=== PATIENT | female | born 1935 | race Caucasian/White ===

== ENCOUNTER 2017-11-26 06:54 | Inpatient (IN) | payer OTHER, MEDICARE ==
[2017-11-19 14:50] VITALS: BMI 25.4
[2017-11-26] MEDS ORDERED: BUPIVACAINE LIPOSOME/PF (EXPAREL) 266 MG/20 ML VIAL ONE (07:14)
[2017-11-26] MEDS ORDERED: MIDAZOLAM HCL 2 MG/2 ML SINGLE DOSE VIAL ONE (07:14)
[2017-11-26] MEDS ORDERED: BUPIVACAINE HCL/PF (5 MG/ML) 30 ML VIAL IJ ONE (07:15)
[2017-11-26] MEDS ORDERED: PROPOFOL 20 ML ONE (07:18)
[2017-11-26] MEDS ORDERED: SUCCINYLCHOLINE CHLORIDE 200 MG/10 ML VIAL ONE (07:18)
[2017-11-26] MEDS ORDERED: TRANEXAMIC ACID 1000 MG/10 ML VIAL ONE (07:18)
[2017-11-26] MEDS ORDERED: ceFAZolin SODIUM 1 GM VIAL ONE ×2 (07:18→12:18)
[2017-11-26] MEDS ORDERED: VANCOMYCIN 1,000 MG VIAL (RESTRICTED TO ID ONLY) ONE (07:18)
[2017-11-26] MEDS ORDERED: BUPIVACAINE 0.75% IN DEXTROSE/PF 2ML AMPULE NR ONE (07:20)
[2017-11-26] MEDS ORDERED: BENZOIN/ALOE VERA/STORAX/TOLU 58 ML BOTTLE ONE (07:24)
[2017-11-26] MEDS ORDERED: TRANEXAMIC ACID 1000 MG/10 ML VIAL IVPUSH ONE (08:16)
[2017-11-26] MEDS ORDERED: WATER IVPB ONE (08:45)
[2017-11-26] MEDS ORDERED: CEFAZOLIN 2 GM/D5W 2 GM/50 ML ML IVPB ONE (08:45)
[2017-11-26] MEDS ORDERED: DEXTROSE 5% IVPB ONE (08:45)
[2017-11-26] MEDS ORDERED: VANCOMYCIN IVPB ONE (08:45)
--- NOTE | 2017-11-26 08:52 | HP ---
History & Physical Update - History History: No Change - Physical Physical: No Change - Assessment Assessment: No Change (No change in health history since visit on 11/24/17 with Juan Jose GOODMAN Labs drawn this morning reviewed by anesthesia. Stress test completed 11/25/17 results reviewed by anesthesia-verbal) - Plan Plan: No Change
[2017-11-26 09:25] LABS: HEMATOCRIT 37.9 % (32.4-45.2); HEMOGLOBIN 12.6 GM/dl (10.7-15.3); MCH 28.3 pg (25.7-33.7); MCHC 33.3 g/dl (32.0-36.0); MEAN PLT VOLUME 9.3 fl (7.5-11.1); PLATELET COUNT 153 K/MM3 (134-434); RBC 4.46 M/mm3 (3.60-5.2); RDW 14.7 % (11.6-15.6)
[2017-11-26] MEDS ORDERED: fentaNYL CITRATE 250 MCG/5 ML VIAL ONE (09:30)
[2017-11-26] MEDS ORDERED: ROCURONIUM BROMIDE 50 MG/5 ML VIAL ONE (09:30)
[2017-11-26] MEDS ORDERED: LIDOCAINE HCL/PF 2% SDV 5ML VIAL ONE (09:33)
[2017-11-26] MEDS ORDERED: ePHEDrine SULFATE 50 MG/1 ML AMPULE ONE (10:58)
[2017-11-26] MEDS ORDERED: GLYCOPYRROLATE 0.2 MG/1 ML VIAL ONE (12:06)
[2017-11-26] MEDS ORDERED: NEOSTIGMINE METHYLSULFATE 0.5 MG/ML - 10 ML MDV ONE (12:06)
[2017-11-26] MEDS ORDERED: ONDANSETRON 4 MG/2 ML VIAL IVPUSH PRN ×2 (12:12→12:38)
[2017-11-26] MEDS ORDERED: oxyCODONE HCL 5 MG TABLET PO PRN (12:12)
[2017-11-26] MEDS ORDERED: ACETAMINOPHEN 325 MG TABLET (FP) PO SCH (12:15)
--- NOTE | 2017-11-26 12:32 | OP ---
Operative Note - Note: Operative Date: 11/26/17 Pre-Operative Diagnosis: Right total hip replacement loosening Operation: Revision right total hip replacement Implants: Moncho Right Rotating Hinge Post-Operative Diagnosis: Same as Pre-op Surgeon: Last Danielle Glass Blower: Dennis Danielle Anesthesiologist/MANAGER EDUCATION: Jose Alberto Garcia Anesthesia: General Specimens Removed: Old hardware Drains & Tubes with Location: 1 x deep HemoVac Operative Report Dictated: Yes
[2017-11-26] MEDS ORDERED: FUROSEMIDE 40 MG TABLET (FP) PO PRN (12:35)
--- NOTE | 2017-11-26 12:35 | PN ---
Progress Note (short form) - Note Progress Note: 82F s/p revision right total knee replacement POD #0. -Pain control. -DVT PPx: -Chemical: ASA 81mg PO BID x 6 weeks. -Mechanical: LOS's, SCD's. -Incentive spirometry. -PT/OT/Rehab, OOB. -TTWB RLE. -Right knee Mcdonald brace. -f/u AM labs. -f/u drain output. -Care per medical hospitalist team. -Discharge planning. -Will follow. Last Danielle MD (Orthopaedic Surgery).
[2017-11-26] MEDS ORDERED: MAG HYDROX/AL HYDROX/SIMETH 30 ML UNIT-DOSE CUP PO PRN (12:38)
[2017-11-26] MEDS ORDERED: MAGNESIUM HYDROX 2400MG/30ML ORAL SUSPENSION 30 ML CUP PO PRN (12:38)
[2017-11-26] MEDS ORDERED: LACTATED RINGERS SOLUTION 1,000 ML IV SCH (12:45)
[2017-11-26] MEDS ORDERED: ACETAMINOPHEN 325 MG TABLET (FP) ONE (13:35)
[2017-11-26] MEDS: oxyCODONE HCL 5 MG TABLET PO PRN ×2 (15:02→16:12)
--- NOTE | 2017-11-26 18:17 | OP ---
DATE OF OPERATION: 11/26/2017 SURGEON: Last Danielle MD TANK STAVE ASSEMBLER: Dennis Danielle MD ANESTHESIA: Spinal anesthesia with general anesthesia. PREOPERATIVE DIAGNOSIS: Loosening previous revision, right total knee arthroplasty. POSTOPERATIVE DIAGNOSIS: Loosening previous revision, right total knee arthroplasty. OPERATION PERFORMED: 1. Explant of rotating hinge. 2. Tibial tubercle osteotomy. 3. Extensive debridement of soft tissue thigh, femur, and knee. 4. Revision total knee arthroplasty (semirotating hinge). ANTIBIOTICS GIVEN: 2 g Kefzol, 1 g vancomycin preop; 1 g Kefzol given at the time of release of the tourniquet. TOURNIQUET TIME: 2 hours and 10 minutes. DESCRIPTION OF PROCEDURE: Patient correctly identified, brought in the operating room. Right lower extremity was prepped, free draped in the routine manner with Betadine scrub solution, wiped with alcohol, Duraprep applied. The incision was made along the original incision, extending proximally and distally. The soft tissues were dissected off the medial parapatellar retinacular tissues. A longitudinal incision was made in the quadriceps tendon, skirting around the would-be site of the patella as previous patellectomy been performed during surgery at [facility] many years ago. The incision continued along the medial tibial tubercle. Attempted patellar eversion was impossible to gain entry to this knee because of thickened fibrous tissue, and we elected to go ahead with a tibial tubercle osteotomy. This measured about 11 cm in total from the top of the tubercle distally. This was flapped open, giving easy access to the entire knee. Extensive fibrotic tissue noted. On the lateral side, there was granulation tissue that appeared angry, red. This was resected and sent to the lab for histopathology evaluation, found to be free of any polymorphs throughout the specimen looked at. Once this had been performed, the actual femoral component was noted to become macroscopically loose. The original thin fully rotating hinge component was removed, polyethylene removed, and then the femoral component removed with no difficulty. The tibia itself appeared to be solidly seated but we elected to remove this because the polyethylene inner lining of the housing had broken. Utilizing a small oscillating saw and osteotomes, the interface between the tibia and the bone bed was transected, and this brought about a complete exposure of the bone beds of the femur and the tibia. Fibrous tissue was readily noted in both. All fibrous tissue along the bone bed was removed. Multiple small endosteal drill holes were made in the femur as well as the tibial component for better cementation and fixation. Once this had been performed, trialing components were utilized to give the best possible match. Significant femoral osteolysis had occurred. We used the size 3 femur, size 100 x 15 stem; the femur had a distal augment buildup as well as in the distal component of the stem. This brought about a good fit and fill picture. The augments were all cemented into position. The tibia was then attended to. This measured size 2 with a size 13 x 100 stem but a 1-cm buildup augment as well. This was independently cemented into position. Excellent alignment was achieved on the table. Once this had been performed and all the trialing components were inserted, a 23-mm polyethylene provided without any hinge implant had excellent stability in the coronal and sagittal plane. All of these components were then cemented into position using routine cement. All extraneous cement was removed after it was cured. The cementing provided solid fixation of all components. The polyethylene liner was inserted with a locking mechanism and pin inserted. The tibial tubercle was then closed over and held with 3 small fragments, screws fixed with interfragmentary fixation. The fixation of the tibial tubercles was solid. No complications. The wounds were thoroughly lavaged. A 1/8th-inch drain was seated. Closure: Fascia 1 Vicryl, subcutaneous 1 and 2-0 Vicryl, skin gallo. However, prior to closure, a small lateral release was necessary in order to facilitate better soft tissue tracking , as the quadriceps tendon appeared to want to slide laterally. This was easily cured with a 2-inch lateral release starting distally and extending proximally. MD HOWARD Ham/[id number] MTDVivien
[2017-11-26] MEDS: ACETAMINOPHEN 325 MG TABLET (FP) PO SCH (20:14)
[2017-11-26] MEDS ORDERED: PT OWN MED DRAWER 7, Y5N ONE (21:32)
[2017-11-26] MEDS: SENNOSIDES/DOCUSATE COMBO (SENNA PLUS) TABLET (UD) PO SCH (21:40)
[2017-11-26] MEDS: ASPIRIN 81 MG CHEWABLE TABLETS PO SCH (21:40)
[2017-11-26] MEDS: GABAPENTIN 100 MG CAPSULE (FP) PO SCH (21:40)
[2017-11-26] MEDS: PRAMIPEXOLE DIHYDROCHLORIDE 1.5 MG TABLET PO SCH (21:41)
[2017-11-27] MEDS: CEFAZOLIN 1 GM/D5W 1 GM/50 ML BAG IVPB SCH (01:08)
[2017-11-27] MEDS: oxyCODONE HCL 5 MG TABLET PO PRN ×3 (01:08→09:34)
[2017-11-27] MEDS: ACETAMINOPHEN 325 MG TABLET (FP) PO SCH ×3 (01:09→21:43)
[2017-11-27] MEDS ORDERED: PT OWN MED DRAWER 7, Y5N ONE (05:37)
[2017-11-27] MEDS: PRAMIPEXOLE DIHYDROCHLORIDE 1.5 MG TABLET PO SCH ×3 (06:10→23:15)
[2017-11-27 08:31] LABS: HEMATOCRIT 31.5 % (32.4-45.2); HEMOGLOBIN 10.5 GM/dl (10.7-15.3); MCH 28.2 pg (25.7-33.7); MCHC 33.2 g/dl (32.0-36.0); MEAN PLT VOLUME 9.4 fl (7.5-11.1); PLATELET COUNT 149 K/MM3 (134-434); RBC 3.71 M/mm3 (3.60-5.2); RDW 14.4 % (11.6-15.6); WHITE BLOOD COUNT 6.2 K/mm3 (4.0-10.8)
[2017-11-27 09:08] LABS: ANION GAP 6 (8-16); BLOOD UREA NITROGEN 18 mg/dl (7-18); CALCIUM 8.2 mg/dl (8.4-10.2); CHLORIDE 102 mmol/L (98-107); CO2 25 mmol/L (22-28); GLUCOSE,RANDOM 95 mg/dl (74-106); POTASSIUM 4.2 mmol/L (3.5-5.1); SODIUM 133 mmol/L (136-145)
[2017-11-27 09:27] LABS: CREATININE < 0.8 mg/dl (0.6-1.3)
[2017-11-27] MEDS: ASPIRIN 81 MG CHEWABLE TABLETS PO SCH ×2 (09:34→23:16)
[2017-11-27] MEDS: SENNOSIDES/DOCUSATE COMBO (SENNA PLUS) TABLET (UD) PO SCH ×2 (09:35→23:17)
[2017-11-27] MEDS: GABAPENTIN 100 MG CAPSULE (FP) PO SCH ×2 (09:35→23:17)
[2017-11-27] MEDS: PANTOPRAZOLE 40 MG TABLET (FP) PO SCH (09:35)
[2017-11-27] MEDS: amLODIPine BESYLATE 5 MG TABLET (FP) PO SCH (09:35)
[2017-11-27] MEDS: SULFAMETHOXAZOLE/TRIMETHOPRIM 800MG/160MG D.S. TABLET PO SCH (09:35)
--- NOTE | 2017-11-27 10:13 | PN ---
Progress Note (short form) - Note Progress Note: Anesthesiology Post-op/Pain Service 82 y.o. woman s/p revision of right knee replacement with peripheral nerve blocks and spinal anesthesia. Pt. is resting comfortably in NAD. Pain under control. No residual paresthesia. VSS. 82 y.o. with stable post-operative course s/p revision of right total knee replacement. Continue post-op management as per primary team.
--- NOTE | 2017-11-27 12:05 | CONSULT ---
Consultation: REQUESTING PROVIDER: Dr Danielle CONSULT REQUEST: We have been asked to medically evaluate this patient for medical management HISTORY OF PRESENT ILLNESS: Patient is a 82 y/o female with a past medical history of CAD, depression, iron deficency anemia, GERD, HTN, and anxiety. Patient underwent a right total knee replacement with revision in the past secondary to infection. Patient is s/p right total knee replacement with revision, spinal anesthesia, Dr Danielle, 11/26/17 REVIEW OF SYSTEMS: CONSTITUTIONAL: Absent: fever, chills, diaphoresis, generalized weakness, malaise, loss of appetite, weight change HEENT: Absent: rhinorrhea, nasal congestion, throat pain, throat swelling, difficulty swallowing, mouth swelling, ear pain, eye pain, visual changes CARDIOVASCULAR: Absent: chest pain, syncope, palpitations, irregular heart rate, lightheadedness , peripheral edema RESPIRATORY: Absent: cough, shortness of breath, dyspnea with exertion, orthopnea, wheezing, stridor, hemoptysis GASTROINTESTINAL: Absent: abdominal pain, abdominal distension, nausea, vomiting, diarrhea, constipation, melena, hematochezia GENITOURINARY: Absent: dysuria, frequency, urgency, hesitancy, hematuria, flank pain, genital pain MUSCULOSKELETAL: Present: right knee pain Absent: myalgia, arthralgia, joint swelling, back pain, neck pain SKIN: Absent: rash, itching, pallor HEMATOLOGIC/IMMUNOLOGIC: Absent: easy bleeding, easy bruising, lymphadenopathy, frequent infections ENDOCRINE: Absent: unexplained weight gain, unexplained weight loss, heat intolerance, cold intolerance NEUROLOGIC: Absent: headache, focal weakness or paresthesias, dizziness, unsteady gait, seizure, mental status changes, bladder or bowel incontinence PSYCHIATRIC: Absent: anxiety, depression, suicidal or homicidal ideation, hallucinations. PHYSICAL EXAMINATION Vital Signs - 24 hr 11/26/17 11/26/17 11/26/17 12:51 12:55 13:00 Temperature 97.6 F Pulse Rate 75 69 68 Respiratory 18 18 18 Rate Blood Pressure 130/61 130/71 125/73 O2 Sat by Pulse 96 97 98 Oximetry (%) 11/26/17 11/26/17 11/26/17 13:05 13:15 13:30 Temperature Pulse Rate 66 65 74 Respiratory 18 18 18 Rate Blood Pressure 128/64 126/76 127/70 O2 Sat by Pulse 97 99 99 Oximetry (%) 11/26/17 11/26/17 11/26/17 13:45 13:53 13:55 Temperature Pulse Rate 73 65 65 Respiratory 18 Rate Blood Pressure 116/66 118/59 118/59 O2 Sat by Pulse 99 100 Oximetry (%) 11/26/17 11/26/17 11/27/17 20:38 21:07 04:00 Temperature 97.5 F L 97.6 F Pulse Rate 68 72 Respiratory 18 18 Rate Blood Pressure 100/51 105/70 O2 Sat by Pulse 100 Oximetry (%) 11/27/17 05:19 Temperature Pulse Rate Respiratory Rate Blood Pressure O2 Sat by Pulse 95 Oximetry (%) GENERAL: Awake, alert, and fully oriented, in no acute distress. HEAD: Normal with no signs of trauma. EYES: Pupils equal, round and reactive to light, extraocular movements intact, sclera anicteric, conjunctiva clear. No lid lag. EARS, NOSE, THROAT: Ears normal, nares patent, oropharynx clear without exudates. Moist mucous membranes. NECK: Normal range of motion, supple without lymphadenopathy, JVD, or masses. LUNGS: Breath sounds equal, clear to auscultation bilaterally. No wheezes, and no crackles. No accessory muscle use. HEART: Regular rate and rhythm, normal S1 and S2 without murmur, rub or gallop. ABDOMEN: Soft, nontender, not distended, normoactive bowel sounds, no guarding, no rebound, no masses. No hepatomegaly or splenomegaly. MUSCULOSKELETAL: Normal range of motion at all joints. No bony deformities or tenderness. No CVA tenderness. UPPER EXTREMITIES: 2+ pulses, warm, well-perfused. No cyanosis. No clubbing. Cap refill <2 seconds. No peripheral edema. LOWER EXTREMITIES: 2+ pulses, warm, well-perfused. No calf tenderness. No peripheral edema. RIGHT LOWER EXTREMITY: knee immobilizer, hemovac, scant sangenous drainag NEUROLOGICAL: Cranial nerves II-XII intact. Normal speech. Normal gait. PSYCHIATRIC: Cooperative. Good eye contact. Appropriate mood and affect. SKIN: Warm, dry, normal turgor, no rashes or lesions noted. Laboratory Results - last 24 hr 11/27/17 11/27/17 08:24 08:27 WBC 6.2 RBC 3.71 Hgb 10.5 L D Hct 31.5 L D MCV 85.0 MCH 28.2 MCHC 33.2 RDW 14.4 Plt Count 149 MPV 9.4 Sodium 133 L Potassium 4.2 Chloride 102 Carbon Dioxide 25 Anion Gap 6 L BUN 18 Creatinine < 0.8 Random Glucose 95 Calcium 8.2 L Active Medications Generic Name Dose Route Start Last Admin Trade Name Freq PRN Reason Stop Dose Admin Acetaminophen 650 mg 11/26/17 13:45 11/27/17 09:33 Tylenol - PO 650 mg Q6H STEVO Administration Al Hydroxide/Mg Hydroxide 30 ml 11/26/17 12:38 Mylanta Oral Suspension - PO Q4H PRN DYSPEPSIA Amlodipine Besylate 5 mg 11/27/17 10:00 11/27/17 09:35 Norvasc - PO 5 mg DAILY STEVO Administration Aspirin 81 mg 11/26/17 22:00 11/27/17 09:34 Asa - PO 81 mg BID STEVO Administration Fentanyl 25 mcg 11/26/17 12:12 Sublimaze Injection - IVPUSH [id number] PRN PAIN-PACU ORDER X 4 DOSES ONLY Furosemide 40 mg 11/26/17 12:35 11/26/17 13:43 Lasix - PO 40 mg DAILY PRN Administration SWOLLEN LEGS Gabapentin 100 mg 11/26/17 22:00 11/27/17 09:35 Neurontin - PO 100 mg BID STEVO Administration Lactated Ringer's 1,000 mls @ 75 mls/hr 11/26/17 12:15 Lactated Ringers Solution IV ASDIR STEVO Magnesium Hydroxide 30 ml 11/26/17 12:38 Milk Of Magnesia - PO PRN PRN CONSTIPATION Ondansetron HCl 4 mg 11/26/17 12:38 Zofran Injection IVPUSH Q6H PRN NAUSEA Oxycodone HCl 5 mg 11/26/17 12:12 11/27/17 09:34 Roxicodone - PO 5 mg Q3H PRN Administration PAIN LEVEL 1-5 Oxycodone HCl 10 mg 11/26/17 12:12 Roxicodone - PO Q3H PRN PAIN LEVEL 6-10 Pantoprazole Sodium 40 mg 11/27/17 10:00 11/27/17 09:35 Protonix - PO 40 mg DAILY STEVO Administration Pramipexole Dihydrochloride 1.5 mg 11/26/17 14:00 11/27/17 06:10 Mirapex - PO 1.5 mg TID STEVO Administration Senna/Docusate Sodium 2 tablet 11/26/17 22:00 11/27/17 09:35 Pericolace - PO 2 tablet BID STEVO Administration Trimethoprim/Sulfamethoxazole 1 each 11/27/17 10:00 11/27/17 09:35 Bactrim Ds - PO 1 each DAILY STEVO Administration ASSESSMENT/PLAN: 1) MS s/p right total knee replacment with revision, POD #1 - prn pain medication - incentive spirometer - physical therapy as per the orthopedist - monitor hgb stable 10.5 2) cardiovascular hypertension - continue norvasc - b/p at goal coronary artery disease - continue ASA 3) heme/onc hx MRSA - continue bactrim, MRSA screen ordered iron deficency anemia - repeat hgb 10.2 strict monitoring, start Iron supplements Dispo: We will continue to follow the patient. Thank you for this consultative opportunity. Visit type - Emergency Visit Emergency Visit: No - New Patient This patient is new to me today: No - Critical Care Critical Care patient: No
[2017-11-27] MEDS ORDERED: ACETAMINOPHEN 325 MG TABLET (FP) ONE (21:41)
[2017-11-27] MEDS: FERROUS SO4 325 MG TABLET (FP) PO SCH (23:26)
[2017-11-28] MEDS: ACETAMINOPHEN 325 MG TABLET (FP) PO SCH ×6 (01:21→20:15)
[2017-11-28] MEDS ORDERED: oxyCODONE HCL 5 MG TABLET ONE (04:49)
[2017-11-28] MEDS: PRAMIPEXOLE DIHYDROCHLORIDE 1.5 MG TABLET PO SCH ×4 (06:16→21:34)
[2017-11-28] MEDS: oxyCODONE HCL 5 MG TABLET PO PRN (06:16)
[2017-11-28] MEDS: LACTATED RINGERS SOLUTION 1,000 ML IV SCH ×3 (07:32→14:06)
--- NOTE | 2017-11-28 07:32 | PN ---
Progress Note (short form) - Note Progress Note: POD #2 s/p Revision right total hip replacement
[2017-11-28] MEDS: CEFAZOLIN 1 GM/D5W 1 GM/50 ML BAG IVPB SCH (07:34)
--- NOTE | 2017-11-28 07:48 | DS ---
Physical Exam: SUBJECTIVE: POD #2 s/p revision right total knee arthroplasty. Patient seen and examined OBJECTIVE: Vital Signs Temperature 99.5 F 11/28/17 06:32 Pulse Rate 92 H 11/28/17 06:32 Respiratory Rate 20 11/28/17 06:32 Blood Pressure 123/73 11/28/17 06:32 O2 Sat by Pulse Oximetry (%) 93 L 11/27/17 23:24 PHYSICAL EXAM GENERAL: The patient is awake, alert, and fully oriented, in no acute distress. HEAD: Normal with no signs of trauma. EYES: PERRL, extraocular movements intact, sclera anicteric, conjunctiva clear. ENT: Ears normal, nares patent, oropharynx clear without exudates, moist mucous membranes. NECK: Trachea midline, full range of motion, supple. LUNGS: cta bilat anteriorly HEART: rrr ABDOMEN: Soft, nt, nd, normoactive bowel sounds EXTREMITIES: RLE with knee immobilizer in place. Hemovac dc'd on rounds. GMNVI bilat. PSYCH: Normal mood, normal affect. LABS CBC,CMP WBC 6.2 K/mm3 (4.0-10.8) 11/27/17 08:24 RBC 3.71 M/mm3 (3.60-5.2) 11/27/17 08:24 Hgb 10.5 GM/dl (10.7-15.3) L D 11/27/17 08:24 Hct 31.5 % (32.4-45.2) L D 11/27/17 08:24 MCV 85.0 fl (80-96) 11/27/17 08:24 MCH 28.2 pg (25.7-33.7) 11/27/17 08:24 MCHC 33.2 g/dl (32.0-36.0) 11/27/17 08:24 RDW 14.4 % (11.6-15.6) 11/27/17 08:24 Plt Count 149 K/MM3 (134-434) 11/27/17 08:24 MPV 9.4 fl (7.5-11.1) 11/27/17 08:24 Sodium 133 mmol/L (136-145) L 11/27/17 08:27 Potassium 4.2 mmol/L (3.5-5.1) 11/27/17 08:27 Chloride 102 mmol/L (98-107) 11/27/17 08:27 Carbon Dioxide 25 mmol/L (22-28) 11/27/17 08:27 Anion Gap 6 (8-16) L 11/27/17 08:27 BUN 18 mg/dl (7-18) 11/27/17 08:27 Creatinine < 0.8 mg/dl (0.6-1.3) 11/27/17 08:27 Random Glucose 95 mg/dl (74-106) 11/27/17 08:27 Calcium 8.2 mg/dl (8.4-10.2) L 11/27/17 08:27 HOSPITAL COURSE: Date of Admission:11/26/17 Date of Discharge: 11/28/17 The patient was admitted to the Med-Surg Unit after an elective repair of right total knee replacement with revision in the past secondary to infection. Now, s/ p revision of right total knee arthroplasty. The day of surgery, the patient ambulated the hallways with assistance. Narcotic and non-narcotic pain management control was achieved with an oral and IV approach. POD #1, the surgical drain was removed fully intact and without incident. Bekah-operative IV ABX were administered. DVT prophylaxis was achieved with SCDs and early ambulation. Patient adamantly refuses to go to REHAB facility. Prefers to go home. Will arrange with rn social work to get ahospital bed delivered to patient's home for short term use). The discharge instructions and an oral pain management plan were reviewed with the patient. All questions answered. Above plan discussed with Dr. Danielle and agreed. Minutes to complete discharge: 25 Visit type - Case Type Case Type: Scheduled - New patient This patient is new to me today: Yes Date on this admission: 11/28/17
[2017-11-28 08:09] LABS: HEMATOCRIT 29.2 % (32.4-45.2); MCHC 34.1 g/dl (32.0-36.0); MEAN CELL VOLUME 85.2 fl (80-96); MEAN PLT VOLUME 9.2 fl (7.5-11.1); PLATELET COUNT 126 K/MM3 (134-434); RBC 3.43 M/mm3 (3.60-5.2); RDW 14.5 % (11.6-15.6); WHITE BLOOD COUNT 6.3 K/mm3 (4.0-10.8)
[2017-11-28] MEDS ORDERED: PT OWN MED DRAWER 7, Y5N ONE ×3 (09:30→21:33)
[2017-11-28] MEDS: FERROUS SO4 325 MG TABLET (FP) PO SCH ×2 (09:33→21:30)
[2017-11-28] MEDS: ASPIRIN 81 MG CHEWABLE TABLETS PO SCH ×2 (09:33→21:30)
[2017-11-28] MEDS: PANTOPRAZOLE 40 MG TABLET (FP) PO SCH (09:33)
[2017-11-28] MEDS: SULFAMETHOXAZOLE/TRIMETHOPRIM 800MG/160MG D.S. TABLET PO SCH (09:33)
[2017-11-28] MEDS: GABAPENTIN 100 MG CAPSULE (FP) PO SCH ×2 (09:33→21:31)
[2017-11-28] MEDS: SENNOSIDES/DOCUSATE COMBO (SENNA PLUS) TABLET (UD) PO SCH ×2 (09:34→21:31)
[2017-11-28] MEDS: amLODIPine BESYLATE 5 MG TABLET (FP) PO SCH (09:34)
--- NOTE | 2017-11-28 16:32 | PATH ---
Surgical Pathology Report Patient Name: ABBIE HERNANDEZ Med. Rec. #: [id number] /Age/Gender: 1935 (Age: 82) / F Account: [id number] Location: [facility] MED-SURG Taken: 11/26/2017 Received: 11/26/2017 Reported: 11/28/2017 Physicians: Last Danielle M.D. Specimen(s) Received A: RIGHT KNEE SYNOVIUM (FROZEN SECTION) B: RIGHT KNEE EXPLANTS Clinical History Right knee loose implant Intraoperative Consult Diagnosis Right knee synovium, frozen section: No neutrophils seen. Calcific deposits present. Qamar Reed M.D., 11/26/17 Final Diagnosis A. SYNOVIUM, RIGHT KNEE, EXCISION: FIBROSYNOVIAL TISSUE SHOWING CALCIFIC DEPOSITS (POSSIBLY DYSTROPHIC CALCIFICATIONS) AND BONE. NO ACUTE INFLAMMATION/NEUTROPHILS ARE IDENTIFIED. B. EXPLANT, RIGHT KNEE: HARDWARE, DESCRIBED (GROSS EXAMINATION ONLY). Electronically Signed Patrica Reed M.D. Gross Description A. Received fresh for frozen section labeled "right knee synovial," is a 2.5 x 2.2 x 0.3 cm portion of red and yellow mills soft tissue. Frozen section is performed on the tissue. The frozen section residue is entirely submitted in one cassette. B. Received fresh labeled "right knee explant," are 2 villa metallic portions of hardware averaging 19 cm in greatest dimension, consistent with portions of knee hardware. Also received within the same container is a 5.8 x 4.0 x 2.6 cm white, plastic foreign body as well as 2 villa metallic screws measuring 6.0 and 7.0 cm in length. No soft tissue is present. No sections are submitted, gross only. 11/26/2017 saudi11/26/2017
[2017-11-29] MEDS: ACETAMINOPHEN 325 MG TABLET (FP) PO SCH ×2 (05:35→07:35)
[2017-11-29] MEDS: PRAMIPEXOLE DIHYDROCHLORIDE 1.5 MG TABLET PO SCH (06:41)
[2017-11-29 09:24] VITALS: BP 134/62; PULSE 82; TEMP 98.8
[2017-11-29] MEDS: SENNOSIDES/DOCUSATE COMBO (SENNA PLUS) TABLET (UD) PO SCH (09:27)
[2017-11-29] MEDS: ASPIRIN 81 MG CHEWABLE TABLETS PO SCH (09:27)
[2017-11-29] MEDS: SULFAMETHOXAZOLE/TRIMETHOPRIM 800MG/160MG D.S. TABLET PO SCH (09:27)
[2017-11-29] MEDS: FERROUS SO4 325 MG TABLET (FP) PO SCH (09:28)
[2017-11-29] MEDS: PANTOPRAZOLE 40 MG TABLET (FP) PO SCH (09:28)
[2017-11-29] MEDS: amLODIPine BESYLATE 5 MG TABLET (FP) PO SCH (09:28)
[2017-11-29] MEDS: GABAPENTIN 100 MG CAPSULE (FP) PO SCH (09:28)
[2017-11-29] MEDS ORDERED: MAGNESIUM HYDROX 2400MG/30ML ORAL SUSPENSION 30 ML CUP PO ONE (09:38)
== END 2017-11-29 11:10 | DRG 468 ==
LOC: FM/S 06:54
PROVIDERS: ADMIT Orthopaedic Surgery Orthopaedic Surgery of the Spine; ATTEND Orthopaedic Surgery Orthopaedic Surgery of the Spine
PROC: 0SP909Z Removal of Liner from Right Hip Joint, Open Approach (ICD-10-PCS; 2017-11-26)
PROC: 0SUR09Z Supplement Right Hip Joint, Femoral Surface with Liner, Open Approach (ICD-10-PCS; 2017-11-26)
PROC: 0SPR0JZ Removal of Synthetic Substitute from Right Hip Joint, Femoral Surface, Open Approach (ICD-10-PCS; 2017-11-26)
PROC: 0SRR0J9 Replacement of Right Hip Joint, Femoral Surface with Synthetic Substitute, Cemented, Open Approach (ICD-10-PCS; principal; 2017-11-26 08:00)
DX: T84.032A Mechanical loosening of internal right knee prosthetic joint, initial encounter (principal); M17.11 Unilateral primary osteoarthritis, right knee; I10 Essential (primary) hypertension; D50.9 Iron deficiency anemia, unspecified; I25.10 Atherosclerotic heart disease of native coronary artery without angina pectoris; K21.9 Gastro-esophageal reflux disease without esophagitis; F41.9 Anxiety disorder, unspecified; F32.9 Major depressive disorder, single episode, unspecified; Z85.3 Personal history of malignant neoplasm of breast; E78.5 Hyperlipidemia, unspecified
CPT/HCPCS: 36415; 73560-TC-RT-FY; 80048; 85027; 86850; 86900; 86901; 86922; 87081; 94010; 94760; 97116-GP; 97162-GP

== ENCOUNTER 2018-05-18 12:38 | Emergency (ER) | payer OTHER, MEDICARE ==
--- NOTE | 2018-05-18 12:49 | PDOC ---
History of Present Illness - General History Source: Patient (Patient brought in by nephew because of pain in the right knee and weakness. Patient reported multiple surgeries on that joint with infections, reconstructions and impressive atrophy of muscles in the lower extremities.) Exam Limitations: No Limitations - History of Present Illness Timing/Duration: unsure Severity: moderate Modifying Factors: improves with: rest Associated Symptoms: reports: denies symptoms <Saeid Haney - Last Filed: 05/18/18 16:19> <Scarlett Perez - Last Filed: 05/18/18 18:43> - General Chief Complaint: Pain Stated Complaint: RT KNEE PAIN Time Seen by Provider: 05/18/18 12:46 Past History - Travel Traveled outside of the country in the last 30 days: No Close contact w/someone who was outside of country & ill: No - Past Medical History Anemia: Yes (PT HAD TRANSFUSION;UNKNOWN CAUSE OF ANEMIA) Asthma: No Cancer: Yes (LEFT BREAST 2006;LUMPECTOMY;CHEMO;RT) Cardiac Disorders: No CVA: No COPD: No CHF: No Dementia: No Diabetes: No GI Disorders: Yes (GERD;ULCERS) Disorders: No HTN: Yes Hypercholesterolemia: Yes Liver Disease: No Psychiatric Problems: Yes (anxiety, depression,) Seizures: No Thyroid Disease: No - Surgical History Abdominal Surgery: No Appendectomy: No Cardiac Surgery: No Cholecystectomy: No Lung Surgery: No Neurologic Surgery: No Orthopedic Surgery: Yes (LEFT KNEE 5-6 REPLACEMENTS R/T MRSA INFECTION?) - Suicide/Smoking/Psychosocial Hx Smoking History: Never smoked Have you smoked in the past 12 months: No Hx Alcohol Use: No Drug/Substance Use Hx: No Substance Use Type: None Hx Substance Use Treatment: No <Saeid Haney - Last Filed: 05/18/18 16:19> <Scarlett Perez - Last Filed: 05/18/18 18:43> - Past Medical History Allergies/Adverse Reactions: Allergies Allergy/AdvReac Type Severity Reaction Status Date / Time Iodinated Contrast- Oral and Allergy Severe Difficulty Verified 05/18/18 12:40 IV Dye Breathing,ANAPHYLACTIC Home Medications: Ambulatory Orders Amlodipine Besylate [Norvasc -] 5 mg PO DAILY 12/15/17 Aspirin [ASA -] 81 mg PO DAILY 12/15/17 Gabapentin [Neurontin] 100 mg PO BID 06/11/18 Metoprolol Succinate [Toprol Xl] 50 mg PO DAILY 12/15/17 Review of Systems - Review of Systems Able to Perform ROS?: Yes Is the patient limited Liberian proficient: Yes Constitutional: Yes: Symptoms Reported, Malaise HEENTM: No: Symptoms Reported, See HPI, Eye Pain, Blurred Vision, Tearing, Recent change in vision, Double Vision, Cataracts, Ear Pain, Ocular Prothesis, Ear Discharge, Nose Pain, Nose Congestion, Tinnitus, Nose Bleeding, Hearing Loss , Throat Pain, Throat Swelling, Mouth Pain, Dental Problems, Difficulty Swallowing, Mouth Swelling, Other Respiratory: No: Symptoms reported, See HPI, Cough, Orthopnea, Shortness of Breath, SOB with Exertion, SOB at Rest, Stridor, Wheezing, Productive cough, Hemoptysis, Other Cardiac (ROS): No: Symptoms Reported, See HPI, Chest Pain, Edema, Irregular Heart Rate, Lightheadedness, Palpitations, Syncope, Chest Tightness, Other ABD/GI: No: Symptoms Reported, See HPI, Abdominal Distended, Abd. Pain w/ defecation, Blood Streaked Bowels, Constipated, Diarrhea, Difficulty Swallowing , Nausea, Poor Appetite, Poor Fluid Intake, Rectal Bleeding, Vomiting, Indigestion, Abdominal cramping, Tarry Stools, Other Integumentary: No: Symptoms Reported, See HPI, Bruising, Change in Color, Change in Hair/Nails, Dryness, Erythema, Flushing, Lesions, Lumps, Pallor, Pruritus, Rash, Sweating, Other All Other Systems: Reviewed and Negative <Saeid Haney - Last Filed: 05/18/18 16:19> *Physical Exam - Vital Signs Last Vital Signs Temp Pulse Resp BP Pulse Ox 97.5 F L 58 L 20 136/73 96 05/18/18 12:40 05/18/18 12:40 05/18/18 12:40 05/18/18 12:40 05/18/18 12:40 <Scarlett Perez - Last Filed: 05/18/18 18:43> Medical Decision Making - Medical Decision Making 05/18/18 3 PM Call placed to Dr. Danielle. Awaiting call back 5:59 PM Radiologist called regarding X-ray performed at 1 PM. Increased luceny seen just under the cortex between the cortex and the cement stabilizing the distal femoral knee replacement component. 6 PM Call placed to Dr. Danielle regarding radiologist report. Awaiting call back Patient informed to contact Dr. Danielle in the morning. 6:33 PM Call placed to patient's home. Awaiting call back. 6:[address] Danielle returned call. Case discussed. Dr. Danielle reviewed X-rays and will call the patient to discuss further management. <Scarlett Perez - Last Filed: 05/18/18 18:43> *DC/Admit/Observation/Transfer - Discharge Dispostion Decision to Admit order: No <Saeid Haney - Last Filed: 05/18/18 16:19> - Attestations Scribe Attestion: 05/18/18 18:31 Documentation prepared by Scarlett Perez, acting as medical transcription editor for Saeid Haney MD. <Scarlett Perez - Last Filed: 05/18/18 18:43> Diagnosis at time of Disposition: Knee pain, chronic Qualifiers: Laterality: right Qualified Code(s): M25.561 - Pain in right knee - Discharge Dispostion Disposition: HOME Condition at time of disposition: Stable - Referrals Referrals: Last Danielle MD [Staff Physician] - - Patient Instructions Printed Discharge Instructions: DI for Knee Pain Additional Instructions: Follow to [facility] as advised by Dr Danielle
[2018-05-18 12:55] VITALS: BP 136/73; PULSE 58; TEMP 97.5; BMI 25.4
--- NOTE | 2018-05-18 19:53 | PDOC ---
Patient Follow-up (Call Back) - Post ED Follow - Up Condition at time of discharge: Stable Disposition at time of original discharge: HOME Reason for Call Back: Radiology (Patient's nephew called back after message was left on patient's voicemail. He will call Dr Danielle's office in the AM and arrange for followup appointment)
== END 2018-05-18 16:31 | disposition home or self-care (01) ==
LOC: FER 12:38
DX: M25.561 Pain in right knee (principal); Z85.3 Personal history of malignant neoplasm of breast; I10 Essential (primary) hypertension; E78.00 Pure hypercholesterolemia, unspecified; F41.8 Other specified anxiety disorders
CPT/HCPCS: 73560-TC-RT-FY; 99282-25

== ENCOUNTER 2018-05-27 08:48 | Inpatient (IN) | payer OTHER, MEDICARE ==
[2018-05-26 11:13] VITALS: BMI 23.6
[2018-05-27] MEDS ORDERED: MIDAZOLAM HCL 2 MG/2 ML SINGLE DOSE VIAL ONE ×2 (10:50→15:35)
[2018-05-27] MEDS ORDERED: BUPIVACAINE LIPOSOME/PF (EXPAREL) 266 MG/20 ML VIAL ONE (10:50)
[2018-05-27] MEDS ORDERED: VANCOMYCIN 1,000 MG VIAL (RESTRICTED TO ID ONLY) ONE (11:09)
[2018-05-27] MEDS ORDERED: EPINEPHrine/PF 1 MG/1 ML (1:1,000) AMPULE ONE (12:07)
[2018-05-27] MEDS ORDERED: KETOROLAC TROMETHAMINE 60 MG/2 ML VIAL ONE (12:07)
[2018-05-27] MEDS ORDERED: BUPIVACAINE HCL/PF 2.5 MG/ML - 30 ML VIAL IJ ONE (12:08)
[2018-05-27] MEDS ORDERED: morphine CARPU-JECT 10 MG/1 ML DISP.SYRIN ONE (12:08)
[2018-05-27] MEDS ORDERED: DEXMEDETOMIDINE HCL 200 MCG/2 ML ML IVPB ONE (12:13)
[2018-05-27] MEDS ORDERED: ePHEDrine SULFATE 50 MG/1 ML AMPULE ONE (12:26)
[2018-05-27] MEDS ORDERED: ceFAZolin SODIUM 1 GM VIAL ONE (15:27)
[2018-05-27] MEDS ORDERED: TRANEXAMIC ACID 1000 MG/10 ML VIAL ONE (15:43)
[2018-05-27] MEDS ORDERED: oxyCODONE HCL 5 MG TABLET PO PRN (17:00)
[2018-05-27] MEDS ORDERED: LACTATED RINGERS SOLUTION 1,000 ML IV SCH ×2 (17:00→17:15)
--- NOTE | 2018-05-27 17:04 | OP ---
Operative Note - Note: Operative Date: 05/27/18 Pre-Operative Diagnosis: Right total knee replacement hardware failure Operation: 1. Revision total knee replacement (femoral and tibial components revised). 2. Tibial tubercle osteotomy & fixation Implants: Kelly. GMRS Femur - Small, curved [id number] stem. Tibia - SM2 MRH baseplate, [id number] stem, 10mm tibial augment. Poly - 10mm Surgeon: Last Danielle Online Services Manager: Dennis Danielle Anesthesiologist/NETWORKING ENGINEER: Jose Alberto Garcia Anesthesia: Spinal, Local Specimens Removed: Hardware, cement Estimated Blood Loss (mls): 150 Drains & Tubes with Location: 1 x deep HemoVac Fluid Volume Replaced (mls): 1,100 (Crystalloid) Operative Report Dictated: Yes
--- NOTE | 2018-05-27 17:06 | PN ---
Progress Note (short form) - Note Progress Note: 83F s/p revision right total knee replacement POD #0. -Pain control. -Transfuse 1U PRBC post-op; closely monitor H&H. -Post-op antibiotics x 48 hrs. -DVT PPx: -Chemical: ASA 81mg PO BID x 6 weeks. -Mechanical: LOS's, SCD's. -Incentive spirometry. -PT/OT/Rehab, OOB. -WBAT RLE. -f/u AM labs. -f/u drain output. -Diet as tolerated. -f/u post-op trial of void. -Care per medical hospitalist team. -Discharge planning. -Will follow. Last Danielle MD (Orthopaedic Surgery).
[2018-05-27] MEDS ORDERED: ONDANSETRON 4 MG/2 ML VIAL IVPUSH PRN (17:08)
[2018-05-27] MEDS ORDERED: MAG HYDROX/AL HYDROX/SIMETH 30 ML UNIT-DOSE CUP PO PRN (17:08)
[2018-05-27] MEDS ORDERED: MAGNESIUM HYDROX 2400MG/30ML ORAL SUSPENSION 30 ML CUP PO PRN (17:08)
[2018-05-27 17:49] LABS: HEMATOCRIT 36.7 % (32.4-45.2); HEMOGLOBIN 11.6 GM/dl (10.7-15.3); MCH 26.4 pg (25.7-33.7); MCHC 31.5 g/dl (32.0-36.0); MEAN CELL VOLUME 83.9 fl (80-96); MEAN PLT VOLUME 9.4 fl (7.5-11.1); PLATELET COUNT 175 K/MM3 (134-434); RBC 4.38 M/mm3 (3.60-5.2); RDW 16.1 % (11.6-15.6); WHITE BLOOD COUNT 9.3 K/mm3 (4.0-10.8)
--- NOTE | 2018-05-27 18:30 | OP ---
DATE OF OPERATION: 05/27/2018 SURGEON: Last Danielle MD FRUIT SORTER: Dennis Danielle MD; medical student PREOPERATIVE DIAGNOSIS: Periprosthetic fracture, right distal femur, with rotating hinge implant in situ and loosening of femoral component. POSTOPERATIVE DIAGNOSIS: Periprosthetic fracture, right distal femur, with rotating hinge implant in situ and loosening of femoral component. OPERATION PERFORMED: 1. Explant of femur and tibia. 2. Resection of distal femur. 3. Revision to endoprosthesis, right knee (Kelly). ANESTHESIA: Peripheral block, spinal anesthesia, and conscious sedation. ANTIBIOTICS GIVEN: Kefzol 2 g, vancomycin 1 g given preoperatively, Kefzol 1 g given at the time of just prior to insertion of the definitive prosthesis. OPERATION DETAILS: The patient was correctly identified, brought in the operating room. The right lower extremity was prepped, free draped in the routine manner with Betadine scrub solution, wiped off with alcohol, and DuraPrep applied. Timeout was called. Imaging was available for intraoperative evaluation. With the patient in supine position, in a bloodless field, a midline incision, the old wound was opened, taken down extensively right down to the femur, coursing down to where the original patella was and then around the medial aspect of the tibial tubercle, sparing the patellar ligament. The soft tissue bed off the proximal and medial femur was dissected sharply and subperiosteally. The original 3 screws that were removed from the tibial tubercle, this had united solidly into position, and a revision tibial tubercle osteotomy performed in a coronal manner, exposing the proximal tibia and the tibial cut was right to the anterior surface of the original prosthesis of the tibia. The knee then readily flexed and easy exposure achieved. The fracture was noted, loss of bone anteriorly of the femur. The remaining bone is of poor quality and we elected, instead of revising this, to go to plan B, which was a distal femoral resection. The femoral component was loose and removed without any difficulty. The tibial component, however, was solidly fixed, necessitating the appropriate breaking in the bone between the cement and the implant interface, this with a small saw, and using osteotomes to appropriately cut into the proximal component of the stem via the tibial tubercle osteotomy, facilitated easy removal and retrieval of the implant. All cement was removed. The bone beds were thoroughly lavaged. The tibial bone was reamed to size 15, and a size 15 stem was opted for, with a size 2 tibial component with a 1 cm buildup block on the tibia. The femur was prepared with reaming to size 15 and a size 11 long stem bowed with 130 cm buildup block and appropriate sized distal femoral block component was inserted into the bone bed to achieve excellent alignment and associated appropriate leg length and orientation of the limb. In order to decrease the 7-degree valgus of the knee itself, I internally rotated the femoral component very slightly, which brought about an improvement of the limb alignment accordingly. This was by evaluating this on the table. Once all the bone bed had been cleared of cement, extraneous tissue and blood, the tissues were lavaged thoroughly. Cementing was in 2 stages. We cemented the tibia and the femur separately and went ahead then, once the cement had cured, by placing 10-mm spacer with a rotating hinge, appropriately, for the actual implant itself. The wounds were thoroughly lavaged throughout the procedure. Once the cement had cured and all extraneous cement had been removed, the revision implant appeared excellent in alignment and position, the tissues were closed as follows: Fascia: 1 Vicryl; subcutaneous: 1 and 2-0 Vicryl; skin: gallo. A 1/8-inch Hemovac x1. This was a complex wound closure because I utilized this fasciotomy on the medial side to free the fascia to allow proximalization of the soft tissue elements medially because of the tightness of tissues. This was a 4-layered closure with the fascia in 2 layers and subcutaneous in 1 layer and skin 1 layer. Overall comment: Operation went extremely well, difficult but turned out to be an excellent outcome. MD HOWARD Ham/[id number]
[2018-05-27] MEDS: SENNOSIDES/DOCUSATE COMBO (SENNA PLUS) TABLET (UD) PO SCH (21:25)
[2018-05-27] MEDS: ASPIRIN COATED 81 MG TABLET.EC PO SCH (21:25)
[2018-05-27] MEDS: GABAPENTIN 100 MG CAPSULE (FP) PO SCH (21:25)
[2018-05-27] MEDS ORDERED: ASPIRIN 325 MG TABLET PO SCH (22:00)
[2018-05-27] MEDS ORDERED: CEFAZOLIN 1 GM/D5W 1 GM/50 ML BAG IVPB SCH (23:00)
[2018-05-27] MEDS: ACETAMINOPHEN 325 MG TABLET (FP) PO SCH (23:03)
[2018-05-27] MEDS: CEFAZOLIN 1 GM/D5W 1 GM/50 ML BAG IVPB SCH (23:03)
[2018-05-28] MEDS: CEFAZOLIN 1 GM/D5W 1 GM/50 ML BAG IVPB SCH ×3 (03:32→18:42)
[2018-05-28] MEDS: oxyCODONE HCL 5 MG TABLET PO PRN (04:56)
[2018-05-28] MEDS: ACETAMINOPHEN 325 MG TABLET (FP) PO SCH ×3 (04:57→18:41)
[2018-05-28] MEDS: PANTOPRAZOLE 40 MG TABLET (FP) PO SCH (09:21)
[2018-05-28] MEDS: GABAPENTIN 100 MG CAPSULE (FP) PO SCH ×2 (09:21→21:34)
[2018-05-28] MEDS: ASPIRIN COATED 81 MG TABLET.EC PO SCH ×2 (09:22→21:34)
[2018-05-28] MEDS: SENNOSIDES/DOCUSATE COMBO (SENNA PLUS) TABLET (UD) PO SCH ×2 (09:22→21:34)
[2018-05-28] MEDS: amLODIPine BESYLATE 5 MG TABLET (FP) PO SCH (09:26)
[2018-05-28 09:33] LABS: HEMATOCRIT 27.2 % (32.4-45.2); HEMOGLOBIN 8.7 GM/dl (10.7-15.3); MCH 26.5 pg (25.7-33.7); MCHC 32.1 g/dl (32.0-36.0); MEAN CELL VOLUME 82.7 fl (80-96); PLATELET COUNT 136 K/MM3 (134-434); RBC 3.28 M/mm3 (3.60-5.2); WHITE BLOOD COUNT 9.8 K/mm3 (4.0-10.8)
[2018-05-28 09:41] LABS: ANION GAP 5 MMOL/L (8-16); BLOOD UREA NITROGEN 22 mg/dl (7-18); CALCIUM 7.9 mg/dl (8.4-10.2); CHLORIDE 104 mmol/L (98-107); CO2 24 mmol/L (22-28); CREATININE 0.7 mg/dl (0.6-1.3); GLUCOSE,RANDOM 84 mg/dl (74-106); POTASSIUM 4.1 mmol/L (3.5-5.1); SODIUM 133 mmol/L (136-145)
[2018-05-28] MEDS ORDERED: ALBUTEROL SO4 0.083% IH SOL 2.5 MG/3 ML VIAL.NEB. NEB ONE (09:47)
--- NOTE | 2018-05-28 13:23 | PN ---
Progress Note (short form) - Note Progress Note: 83F s/p revision right total knee replacement POD #1. Pain well controlled. No acute events overnight. Pt. denies overnight history of headaches, chest pain, shortness of breath, nausea, vomiting, chills, & sweats. (+) Voiding; (+) Flatus; (+) BM. Tolerating diet. (+) Walked in room. All labs and vitals reviewed. PE: AAO x 3, NAD. R-Knee: Dressing C/D/I. HemoVac drain intact & in place. Drain ouput: 100cc/ overnight. NVI distally. A/P: 83F s/p revision right total knee replacement POD #1. -Pain control. -Transfuse 1U PRBC today; closely monitor H&H. -Post-op antibiotics x 48 hrs. -DVT PPx: -Chemical: ASA 81mg PO BID x 6 weeks. -Mechanical: LOS's, SCD's. -Incentive spirometry. -PT/OT/Rehab, OOB. -WBAT RLE. -f/u AM labs. -f/u drain output. -Diet as tolerated. -Care per medical hospitalist team. -Discharge planning: home with visiting nurse service, physical therapy, and home health aid. -Will follow. Dennis Danielle MD (Orthopaedic Surgery).
--- NOTE | 2018-05-28 14:22 | CONSULT ---
Consultation: REQUESTING PROVIDER: Dr. Last Danielle CONSULT REQUEST: We have been asked to medically manage this patient post- operatively. 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 REVIEW OF SYSTEMS: CONSTITUTIONAL: Absent: fever, chills, diaphoresis, generalized weakness, malaise, loss of appetite, weight change HEENT: Absent: rhinorrhea, nasal congestion, throat pain, throat swelling, difficulty swallowing, mouth swelling, ear pain, eye pain, visual changes CARDIOVASCULAR: Absent: chest pain, syncope, palpitations, irregular heart rate, lightheadedness , peripheral edema RESPIRATORY: Absent: cough, shortness of breath, dyspnea with exertion, orthopnea, wheezing, stridor, hemoptysis GASTROINTESTINAL: Absent: abdominal pain, abdominal distension, nausea, vomiting, diarrhea, constipation, melena, hematochezia GENITOURINARY: Absent: dysuria, frequency, urgency, hesitancy, hematuria, flank pain, genital pain MUSCULOSKELETAL: +Back pain Absent: myalgia, arthralgia, joint swelling, back pain, neck pain SKIN: Absent: rash, itching, pallor HEMATOLOGIC/IMMUNOLOGIC: Absent: easy bleeding, easy bruising, lymphadenopathy, frequent infections ENDOCRINE: Absent: unexplained weight gain, unexplained weight loss, heat intolerance, cold intolerance NEUROLOGIC: Absent: headache, focal weakness or paresthesias, dizziness, unsteady gait, seizure, mental status changes, bladder or bowel incontinence PSYCHIATRIC: Absent: anxiety, depression, suicidal or homicidal ideation, hallucinations. PHYSICAL EXAMINATION Vital Signs 05/28/18 14:11 Temperature 97.9 F Pulse Rate 82 Respiratory 16 Rate Blood Pressure 119/57 L O2 Sat by Pulse 90 L Oximetry (%) GENERAL: Awake, alert. Complaining of back pain from sitting in chair earlier today. Denies knee pain. +nausea, vomiting lunch meal HEAD: Normal with no signs of trauma. EYES: Pupils equal, round and reactive to light, extraocular movements intact, sclera anicteric, conjunctiva clear. No lid lag. LUNGS: Breath sounds equal, clear to auscultation bilaterally. No wheezes, and no crackles. No accessory muscle use. HEART: Regular rate and rhythm, S1 and S2; + murmur ABDOMEN: Soft, nontender, not distended UPPER EXTREMITIES: 2+ pulses, warm, well-perfused. No cyanosis. No clubbing. Cap refill <2 seconds. No peripheral edema. RIGHT LOWER EXTREMITY: Surgical dressings and outer wrappings in place, c/d/i, TEDs LEFT LOWER EXTREMITY: SCD, LOS NEUROLOGICAL: Cranial nerves II-XII intact. Normal speech. Laboratory Results - last 24 hr 05/27/18 05/27/18 05/28/18 12:18 17:30 06:25 WBC 9.3 9.8 RBC 4.38 3.28 L Hgb 11.6 8.7 L Hct 36.7 27.2 L D MCV 83.9 82.7 MCH 26.4 26.5 MCHC 31.5 L 32.1 RDW 16.1 H 16.0 H Plt Count 175 136 MPV 9.4 10.0 Sodium Potassium Chloride Carbon Dioxide Anion Gap BUN Creatinine Creat Clearance w eGFR Random Glucose Calcium Blood Type B POSITIVE Antibody Screen Negative Crossmatch See Detail 05/28/18 06:25 WBC RBC Hgb Hct MCV MCH MCHC RDW Plt Count MPV Sodium 133 L Potassium 4.1 Chloride 104 Carbon Dioxide 24 Anion Gap 5 L BUN 22 H Creatinine 0.7 Creat Clearance w eGFR > 60 Random Glucose 84 Calcium 7.9 L Blood Type Antibody Screen Crossmatch Active Medications Generic Name Dose Route Start Last Admin Trade Name Freq PRN Reason Stop Dose Admin Acetaminophen 650 mg 05/27/18 17:00 05/28/18 13:25 Tylenol - PO 05/30/18 16:59 650 mg Q6H STEVO Administration Al Hydroxide/Mg Hydroxide 30 ml 05/27/18 17:08 Mylanta Oral Suspension - PO Q4H PRN DYSPEPSIA Amlodipine Besylate 5 mg 05/28/18 10:00 05/28/18 09:26 Norvasc - PO Not Given DAILY STEVO Aspirin 81 mg 05/27/18 22:00 05/28/18 09:22 Ecotrin - PO 81 mg BID STEVO Administration Gabapentin 100 mg 05/27/18 22:00 05/28/18 09:21 Neurontin - PO 100 mg BID STEVO Administration Cefazolin Sodium 1 gm in 50 mls @ 100 mls/hr 05/27/18 23:00 05/28/18 10:00 Ancef 1 Gm Premixed Ivpb - IVPB 05/29/18 10:29 100 mls/hr Q8H-IV STEVO Administration Protocol Magnesium Hydroxide 30 ml 05/27/18 17:08 Milk Of Magnesia - PO PRN PRN CONSTIPATION Metoprolol Succinate 50 mg 05/28/18 10:00 05/28/18 09:23 Toprol Xl - PO 50 mg DAILY STEVO Administration Ondansetron HCl 4 mg 05/27/18 17:08 05/27/18 18:15 Zofran Injection IVPUSH 4 mg Q6H PRN Administration NAUSEA Oxycodone HCl 5 mg 05/27/18 17:00 05/28/18 04:56 Roxicodone - PO 5 mg Q3H PRN Administration PAIN LEVEL 1-5 Oxycodone HCl 10 mg 05/27/18 17:00 Roxicodone - PO Q3H PRN PAIN LEVEL 6-10 Pantoprazole Sodium 40 mg 05/28/18 10:00 05/28/18 09:21 Protonix - PO 40 mg DAILY STEVO Administration Senna/Docusate Sodium 2 tablet 05/27/18 22:00 05/28/18 09:22 Pericolace - PO 2 tablet BID STEVO Administration ASSESSMENT/PLAN: 83 year-old female with a PMH significant for HTN, CAD, iron-deficiency anemia, GERD, depression, 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 Right total knee replacement hardware failure s/p revision total right knee replacement --POD #1 --perioperative antibiotics per surgery --Hgb 8.7 (<--11.6); surgery ordered 1U PRBC to be transfused today --drain out 210cc's past 24 hours --pain presently well-controlled with PO meds; continue home gabapentin --incentive spirometer Nausa, vomiting --belching, nauseous, spitting up food after lunch meal --scale back diet to clears --NS x 250mL x 1 --Zofran Hypertension --mildly hypotensive, unit of PRBC will give volume, no lasix --continue amlodipine, ToprolXL with hold parameters Coronary artery disease --continue ToprolXL, on ASA Iron-deficiency anemia --MCV wnl --not on home meds GERD --continue protonix Depression --not on home meds FEN Fluids: PO intake adequate Electrolytes: replete as indicated Nutrition: low sodium DVT prophylaxis: ASA, oob, ambulation, SCDs, TEDs Physical therapy Dispo: We will continue to follow the patient. Thank you for this consultative opportunity. Visit type - Emergency Visit Emergency Visit: Yes ED Registration Date: 05/27/18 Care time: The patient presented to the Emergency Department on the above date and was hospitalized for further evaluation of their emergent condition. - New Patient This patient is new to me today: Yes Date on this admission: 05/28/18 - Critical Care Critical Care patient: No
--- NOTE | 2018-05-28 14:22 | PN ---
Physical Exam: SUBJECTIVE: Patient seen and examined OBJECTIVE: Vital Signs Period Temp Pulse Resp BP Sys/Sen Pulse Ox Last 24 Hr 97.7 F-100.4 F 53-89 10-18 93-127/44-60 92-98 GENERAL: The patient is awake, alert, and fully oriented, in no acute distress. HEAD: Normal with no signs of trauma. EYES: PERRL, extraocular movements intact, sclera anicteric, conjunctiva clear. No ptosis. ENT: Ears normal, nares patent, oropharynx clear without exudates, moist mucous membranes. NECK: Trachea midline, full range of motion, supple. LUNGS: Breath sounds equal, clear to auscultation bilaterally, no wheezes, no crackles, no accessory muscle use. HEART: Regular rate and rhythm, S1, S2 without murmur, rub or gallop. ABDOMEN: Soft, nontender, nondistended, normoactive bowel sounds, no guarding, no rebound, no hepatosplenomegaly, no masses. EXTREMITIES: 2+ pulses, warm, well-perfused, no edema. NEUROLOGICAL: Cranial nerves II through XII grossly intact. Normal speech, gait not observed. PSYCH: Normal mood, normal affect. SKIN: Warm, dry, normal turgor, no rashes or lesions noted Laboratory Results - last 24 hr 05/27/18 05/27/18 05/28/18 12:18 17:30 06:25 WBC 9.3 9.8 RBC 4.38 3.28 L Hgb 11.6 8.7 L Hct 36.7 27.2 L D MCV 83.9 82.7 MCH 26.4 26.5 MCHC 31.5 L 32.1 RDW 16.1 H 16.0 H Plt Count 175 136 MPV 9.4 10.0 Sodium Potassium Chloride Carbon Dioxide Anion Gap BUN Creatinine Creat Clearance w eGFR Random Glucose Calcium Blood Type B POSITIVE Antibody Screen Negative Crossmatch See Detail 05/28/18 06:25 WBC RBC Hgb Hct MCV MCH MCHC RDW Plt Count MPV Sodium 133 L Potassium 4.1 Chloride 104 Carbon Dioxide 24 Anion Gap 5 L BUN 22 H Creatinine 0.7 Creat Clearance w eGFR > 60 Random Glucose 84 Calcium 7.9 L Blood Type Antibody Screen Crossmatch Active Medications Generic Name Dose Route Start Last Admin Trade Name Freq PRN Reason Stop Dose Admin Acetaminophen 650 mg 05/27/18 17:00 05/28/18 13:25 Tylenol - PO 05/30/18 16:59 650 mg Q6H STEVO Administration Al Hydroxide/Mg Hydroxide 30 ml 05/27/18 17:08 Mylanta Oral Suspension - PO Q4H PRN DYSPEPSIA Amlodipine Besylate 5 mg 05/28/18 10:00 05/28/18 09:26 Norvasc - PO Not Given DAILY STEVO Aspirin 81 mg 05/27/18 22:00 05/28/18 09:22 Ecotrin - PO 81 mg BID STEVO Administration Gabapentin 100 mg 05/27/18 22:00 05/28/18 09:21 Neurontin - PO 100 mg BID STEVO Administration Cefazolin Sodium 1 gm in 50 mls @ 100 mls/hr 05/27/18 23:00 05/28/18 10:00 Ancef 1 Gm Premixed Ivpb - IVPB 05/29/18 10:29 100 mls/hr Q8H-IV STEVO Administration Protocol Magnesium Hydroxide 30 ml 05/27/18 17:08 Milk Of Magnesia - PO PRN PRN CONSTIPATION Metoprolol Succinate 50 mg 05/28/18 10:00 05/28/18 09:23 Toprol Xl - PO 50 mg DAILY STEVO Administration Ondansetron HCl 4 mg 05/27/18 17:08 05/27/18 18:15 Zofran Injection IVPUSH 4 mg Q6H PRN Administration NAUSEA Oxycodone HCl 5 mg 05/27/18 17:00 05/28/18 04:56 Roxicodone - PO 5 mg Q3H PRN Administration PAIN LEVEL 1-5 Oxycodone HCl 10 mg 05/27/18 17:00 Roxicodone - PO Q3H PRN PAIN LEVEL 6-10 Pantoprazole Sodium 40 mg 05/28/18 10:00 05/28/18 09:21 Protonix - PO 40 mg DAILY STEVO Administration Senna/Docusate Sodium 2 tablet 05/27/18 22:00 05/28/18 09:22 Pericolace - PO 2 tablet BID STEVO Administration ASSESSMENT/PLAN:
[2018-05-28] MEDS ORDERED: ONDANSETRON 4 MG/2 ML VIAL IVPUSH ONE (14:41)
[2018-05-28] MEDS ORDERED: SODIUM CHLORIDE 250 ML IV STA (14:44)
[2018-05-29] MEDS: oxyCODONE HCL 5 MG TABLET PO PRN ×2 (00:07→23:21)
[2018-05-29] MEDS: ACETAMINOPHEN 325 MG TABLET (FP) PO SCH ×5 (00:08→23:23)
[2018-05-29] MEDS ORDERED: MELATONIN 5 MG TABLETS PO ONE (01:12)
[2018-05-29] MEDS: CEFAZOLIN 1 GM/D5W 1 GM/50 ML BAG IVPB SCH ×2 (01:21→10:03)
[2018-05-29 08:31] LABS: EOS % 9.4 % (0-4.5); HEMATOCRIT 29.2 % (32.4-45.2); HEMOGLOBIN 9.5 GM/dl (10.7-15.3); LYMPH % 13.6 % (8-40); MCH 28.1 pg (25.7-33.7); MCHC 32.7 g/dl (32.0-36.0); MEAN CELL VOLUME 86.1 fl (80-96); MEAN PLT VOLUME 10.2 fl (7.5-11.1); MONO % 8.1 % (3.8-10.2); NEUT % 67.9 % (42.8-82.8); PLATELET COUNT 102 K/MM3 (134-434); RBC 3.39 M/mm3 (3.60-5.2); RDW 16.5 % (11.6-15.6); WHITE BLOOD COUNT 7.3 K/mm3 (4.0-10.8)
[2018-05-29] MEDS: SENNOSIDES/DOCUSATE COMBO (SENNA PLUS) TABLET (UD) PO SCH ×2 (10:02→21:57)
[2018-05-29] MEDS: ASPIRIN COATED 81 MG TABLET.EC PO SCH ×2 (10:02→21:57)
[2018-05-29] MEDS: GABAPENTIN 100 MG CAPSULE (FP) PO SCH ×2 (10:02→21:57)
[2018-05-29] MEDS: amLODIPine BESYLATE 5 MG TABLET (FP) PO SCH (10:03)
[2018-05-29] MEDS: PANTOPRAZOLE 40 MG TABLET (FP) PO SCH (10:03)
[2018-05-29 10:16] LABS: ALBUMIN 2.4 g/dl (3.5-5.0); ALK PHOS 64 U/L (32-92); ANION GAP 9 MMOL/L (8-16); BILIRUBIN,TOTAL 0.5 mg/dl (0.2-1.0); BLOOD UREA NITROGEN 23 mg/dl (7-18); CALCIUM 8.2 mg/dl (8.4-10.2); CHLORIDE 105 mmol/L (98-107); CO2 22 mmol/L (22-28); CREATININE 0.8 mg/dl (0.6-1.3); GLUCOSE,RANDOM 110 mg/dl (74-106); MAGNESIUM 1.7 mg/dL (1.8-2.4); POTASSIUM 3.7 mmol/L (3.5-5.1); SGOT/AST 21 U/L (10-42); SGPT/ALT 9 U/L (10-40); SODIUM 136 mmol/L (136-145); TOT PROT 4.7 g/dl (6.4-8.3)
[2018-05-29] MEDS ORDERED: MAGNESIUM SULF 50% (8.12 MEQ/2 ML-1 GM VIAL) IVPB ONE (12:04)
[2018-05-29] MEDS ORDERED: MAGNESIUM SULFATE IN WATER 2 GM/50 ML IVPB IVPB ONE (12:30)
--- NOTE | 2018-05-29 14:28 | PN ---
Physical Exam: SUBJECTIVE: Patient seen and examined oob to chair. OBJECTIVE: Vital Signs Period Temp Pulse Resp BP Sys/Sen Pulse Ox Last 24 Hr 97.6 F-98.8 F 58-87 17-18 94-104/41-57 98 GENERAL: Awake, alert. Denies pain. Nausea better. LUNGS: Breath sounds equal, clear to auscultation bilaterally. No wheezes, and no crackles. No accessory muscle use. HEART: Regular rate and rhythm, S1 and S2; + murmur ABDOMEN: Soft, nontender, not distended UPPER EXTREMITIES: 2+ pulses, warm, well-perfused. No cyanosis. No clubbing. Cap refill <2 seconds. No peripheral edema. RIGHT LOWER EXTREMITY: Surgical dressings and outer wrappings in place, c/d/i, TEDs LEFT LOWER EXTREMITY: SCD, LOS NEUROLOGICAL: Cranial nerves II-XII intact. Normal speech. Laboratory Results - last 24 hr 05/27/18 05/28/18 05/29/18 12:18 16:03 07:00 WBC 7.3 RBC 3.39 L Hgb 9.5 L Hct 29.2 L MCV 86.1 MCH 28.1 MCHC 32.7 RDW 16.5 H Plt Count 102 L MPV 10.2 Absolute Neuts (auto) 4.9 Neutrophils % 67.9 Lymphocytes % 13.6 Monocytes % 8.1 Eosinophils % 9.4 H Basophils % 1.0 Sodium Potassium Chloride Carbon Dioxide Anion Gap BUN Creatinine Creat Clearance w eGFR Random Glucose Calcium Magnesium Total Bilirubin AST ALT Alkaline Phosphatase Total Protein Albumin Crossmatch See Detail See Detail 05/29/18 07:00 WBC RBC Hgb Hct MCV MCH MCHC RDW Plt Count MPV Absolute Neuts (auto) Neutrophils % Lymphocytes % Monocytes % Eosinophils % Basophils % Sodium 136 Potassium 3.7 Chloride 105 Carbon Dioxide 22 Anion Gap 9 BUN 23 H Creatinine 0.8 Creat Clearance w eGFR > 60 Random Glucose 110 H D Calcium 8.2 L Magnesium 1.7 L Total Bilirubin 0.5 AST 21 ALT 9 L D Alkaline Phosphatase 64 D Total Protein 4.7 L D Albumin 2.4 L Crossmatch Active Medications Generic Name Dose Route Start Last Admin Trade Name Freq PRN Reason Stop Dose Admin Acetaminophen 650 mg 05/27/18 17:00 05/29/18 14:10 Tylenol - PO 05/30/18 16:59 650 mg Q6H STEVO Administration Al Hydroxide/Mg Hydroxide 30 ml 05/27/18 17:08 Mylanta Oral Suspension - PO Q4H PRN DYSPEPSIA Amlodipine Besylate 5 mg 05/28/18 10:00 05/29/18 10:03 Norvasc - PO Not Given DAILY STEVO Aspirin 81 mg 05/27/18 22:00 05/29/18 10:02 Ecotrin - PO 81 mg BID STEVO Administration Gabapentin 100 mg 05/27/18 22:00 05/29/18 10:02 Neurontin - PO 100 mg BID STEVO Administration Magnesium Hydroxide 30 ml 05/27/18 17:08 Milk Of Magnesia - PO PRN PRN CONSTIPATION Metoprolol Succinate 50 mg 05/28/18 10:00 05/29/18 10:02 Toprol Xl - PO 50 mg DAILY STEVO Administration Ondansetron HCl 4 mg 05/27/18 17:08 05/27/18 18:15 Zofran Injection IVPUSH 4 mg Q6H PRN Administration NAUSEA Oxycodone HCl 5 mg 05/27/18 17:00 05/29/18 00:07 Roxicodone - PO 5 mg Q3H PRN Administration PAIN LEVEL 1-5 Oxycodone HCl 10 mg 05/27/18 17:00 Roxicodone - PO Q3H PRN PAIN LEVEL 6-10 Pantoprazole Sodium 40 mg 05/28/18 10:00 05/29/18 10:03 Protonix - PO 40 mg DAILY STEVO Administration Senna/Docusate Sodium 2 tablet 05/27/18 22:00 05/29/18 10:02 Pericolace - PO 2 tablet BID STEVO Administration ASSESSMENT/PLAN: 83 year-old female with a PMH significant for HTN, CAD, iron-deficiency anemia, GERD, depression, 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 Right total knee replacement hardware failure s/p revision total right knee replacement --POD #2 --perioperative antibiotics per surgery --transfused 1U PRBC on 05/28, Hgb 8.7-->9.5 --drain out 200ccs past 24 hours --pain presently well-controlled with PO meds; continue home gabapentin --incentive spirometer Nausa, vomiting --improved --Zofran PRN --advance diet Hypertension --mildly hypotensive --continue amlodipine, ToprolXL with hold parameters Coronary artery disease --continue ToprolXL, on ASA Iron-deficiency anemia --MCV wnl --not on home meds GERD --continue protonix Depression --not on home meds FEN Fluids: PO intake adequate Electrolytes: replete as indicated Nutrition: low sodium DVT prophylaxis: ASA, oob, ambulation, SCDs, TEDs Physical therapy Dispo: We will continue to follow the patient. Thank you for this consultative opportunity. Visit type - Emergency Visit Emergency Visit: No - New Patient This patient is new to me today: No - Critical Care Critical Care patient: No
[2018-05-30] MEDS: ACETAMINOPHEN 325 MG TABLET (FP) PO SCH ×2 (06:36→11:00)
[2018-05-30] MEDS: GABAPENTIN 100 MG CAPSULE (FP) PO SCH ×2 (09:32→21:59)
[2018-05-30] MEDS: ASPIRIN COATED 81 MG TABLET.EC PO SCH ×2 (09:32→21:59)
[2018-05-30] MEDS: amLODIPine BESYLATE 5 MG TABLET (FP) PO SCH (09:33)
[2018-05-30] MEDS: PANTOPRAZOLE 40 MG TABLET (FP) PO SCH (09:35)
[2018-05-30] MEDS: SENNOSIDES/DOCUSATE COMBO (SENNA PLUS) TABLET (UD) PO SCH ×2 (09:35→21:59)
--- NOTE | 2018-05-30 15:19 | PN ---
Progress Note (short form) - Note Progress Note: POD#3 Awake Mental status varies At first confused but then became fully orientated Did walk with pt Vitals All stable Blood numbers Normal cvs Stable Resp Clear ABD Soft Flatus normal MSkeletal Bandage dry Drain removed Vas No Neurovascular abnormalities No calf or subsartorian tenderness ASSESS Post Revision TKR Doing well PLAN PT Mobilize as best as possible FWBAT Suggest brace Pain and sedative mx D./C planning ?Friday
--- NOTE | 2018-05-30 16:09 | PN ---
Physical Exam: SUBJECTIVE: Patient seen and examined. Not sleeping well at night. OBJECTIVE: Vital Signs Period Temp Pulse Resp BP Sys/Sen Pulse Ox Last 24 Hr 97.5 F-98.5 F 60-73 16-19 102-121/51-61 88-95 GENERAL: Awake, alert. Denies pain. Nausea better. LUNGS: Breath sounds equal, clear to auscultation bilaterally. No wheezes, and no crackles. No accessory muscle use. HEART: Regular rate and rhythm, S1 and S2; + murmur ABDOMEN: Soft, nontender, not distended UPPER EXTREMITIES: 2+ pulses, warm, well-perfused. No cyanosis. No clubbing. Cap refill <2 seconds. No peripheral edema. RIGHT LOWER EXTREMITY: Surgical dressings and outer wrappings in place, c/d/i, TEDs LEFT LOWER EXTREMITY: SCD, LOS NEUROLOGICAL: Cranial nerves II-XII intact. Normal speech. Active Medications Generic Name Dose Route Start Last Admin Trade Name Freq PRN Reason Stop Dose Admin Acetaminophen 650 mg 05/27/18 17:00 05/30/18 06:36 Tylenol - PO 05/30/18 16:59 Not Given Q6H STEVO Al Hydroxide/Mg Hydroxide 30 ml 05/27/18 17:08 Mylanta Oral Suspension - PO Q4H PRN DYSPEPSIA Amlodipine Besylate 5 mg 05/28/18 10:00 05/30/18 09:33 Norvasc - PO Not Given DAILY STEVO Aspirin 81 mg 05/27/18 22:00 05/30/18 09:32 Ecotrin - PO 81 mg BID STEVO Administration Gabapentin 100 mg 05/27/18 22:00 05/30/18 09:32 Neurontin - PO 100 mg BID STEVO Administration Magnesium Hydroxide 30 ml 05/27/18 17:08 Milk Of Magnesia - PO PRN PRN CONSTIPATION Melatonin 3 mg 05/30/18 22:00 Melatonin PO HS STEVO Metoprolol Succinate 50 mg 05/28/18 10:00 05/29/18 10:02 Toprol Xl - PO 50 mg DAILY STEVO Administration Ondansetron HCl 4 mg 05/27/18 17:08 05/27/18 18:15 Zofran Injection IVPUSH 4 mg Q6H PRN Administration NAUSEA Oxycodone HCl 5 mg 05/27/18 17:00 05/29/18 23:21 Roxicodone - PO 5 mg Q3H PRN Administration PAIN LEVEL 1-5 Oxycodone HCl 10 mg 05/27/18 17:00 Roxicodone - PO Q3H PRN PAIN LEVEL 6-10 Pantoprazole Sodium 40 mg 05/28/18 10:00 05/30/18 09:35 Protonix - PO 40 mg DAILY STEVO Administration Senna/Docusate Sodium 2 tablet 05/27/18 22:00 05/30/18 09:35 Pericolace - PO 2 tablet BID STEVO Administration ASSESSMENT/PLAN: 83 year-old female with a PMH significant for HTN, CAD, iron-deficiency anemia, GERD, depression, 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 Right total knee replacement hardware failure s/p revision total right knee replacement --POD #3 --perioperative antibiotics per surgery --transfused 1U PRBC on 05/28, h/h stable --drain pulled today by Dr. Danielle --pain presently well-controlled with PO meds; continue home gabapentin --incentive spirometer Nausa, vomiting --improved --Zofran PRN --advance diet Hypertension --mildly hypotensive --continue amlodipine, ToprolXL with hold parameters Coronary artery disease --continue ToprolXL, on ASA Iron-deficiency anemia --MCV wnl --not on home meds GERD --continue protonix Depression --not on home meds FEN Fluids: PO intake adequate Electrolytes: replete as indicated Nutrition: soft DVT prophylaxis: ASA, oob, ambulation, SCDs, TEDs Physical therapy Dispo: We will continue to follow the patient. Thank you for this consultative opportunity. Visit type - Emergency Visit Emergency Visit: Yes ED Registration Date: 05/27/18 Care time: The patient presented to the Emergency Department on the above date and was hospitalized for further evaluation of their emergent condition. - New Patient This patient is new to me today: No - Critical Care Critical Care patient: No
[2018-05-30] MEDS: MELATONIN 1 MG TABLET PO SCH (21:59)
[2018-05-30] MEDS ORDERED: MELATONIN 1 MG TABLET PO SCH (22:00)
--- NOTE | 2018-05-31 08:54 | PN ---
Physical Exam: SUBJECTIVE: Patient seen and examined, pt c/o Rt knee pain, no other complains. OBJECTIVE: Vital Signs Period Temp Pulse Resp BP Sys/Sen Pulse Ox Last 24 Hr 97.5 F-98.5 F 67-73 16-19 102-125/51-67 93-97 GENERAL: [place],pt is alert/awake,forgetful,not in any acute distress. HEAD: Normal with no signs of trauma. EYES: PERRL, extraocular movements intact, sclera anicteric, conjunctiva clear. No ptosis. ENT: Ears normal, nares patent, oropharynx clear without exudates, moist mucous membranes. NECK: Trachea midline, full range of motion, supple. LUNGS: Breath sounds equal, clear to auscultation bilaterally, no wheezes, no crackles, no accessory muscle use. HEART: Regular rate and rhythm, S1, S2 without murmur, rub or gallop. ABDOMEN: Soft, non-tender, non-distended, normoactive bowel sounds, no guarding , no rebound, no hepatosplenomegaly, no masses. EXTREMITIES: 2+ pulses, warm, well-perfused, no edema. Rt knee dsg intact NEUROLOGICAL: Cranial nerves II through XII grossly intact. Normal speech, gait not observed. PSYCH: Normal mood, normal affect. SKIN: Warm, dry, normal turgor, no rashes or lesions noted Active Medications Generic Name Dose Route Start Last Admin Trade Name Freq PRN Reason Stop Dose Admin Al Hydroxide/Mg Hydroxide 30 ml 05/27/18 17:08 Mylanta Oral Suspension - PO Q4H PRN DYSPEPSIA Amlodipine Besylate 5 mg 05/28/18 10:00 05/30/18 09:33 Norvasc - PO Not Given DAILY STEVO Aspirin 81 mg 05/27/18 22:00 05/30/18 21:59 Ecotrin - PO 81 mg BID STEVO Administration Gabapentin 100 mg 05/27/18 22:00 05/30/18 21:59 Neurontin - PO 100 mg BID STEVO Administration Magnesium Hydroxide 30 ml 05/27/18 17:08 Milk Of Magnesia - PO PRN PRN CONSTIPATION Melatonin 3 mg 05/30/18 22:00 05/30/18 21:59 Melatonin PO 3 mg HS STEVO Administration Metoprolol Succinate 50 mg 05/28/18 10:00 05/30/18 10:00 Toprol Xl - PO 50 mg DAILY STEVO Administration Ondansetron HCl 4 mg 05/27/18 17:08 05/27/18 18:15 Zofran Injection IVPUSH 4 mg Q6H PRN Administration NAUSEA Pantoprazole Sodium 40 mg 05/28/18 10:00 05/30/18 09:35 Protonix - PO 40 mg DAILY STEVO Administration Senna/Docusate Sodium 2 tablet 05/27/18 22:00 05/30/18 21:59 Pericolace - PO 2 tablet BID STEVO Administration ASSESSMENT/PLAN: This is an 83 year-old female with a PMH significant for HTN, CAD, iron- deficiency anemia, GERD, depression, 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 *Right total knee replacement hardware failure -s/p revision total right knee replacement -POD #4 -drain pulled on 05/30/[address] Danielle -transfused 1U PRBC on 05/28, post transfusion H/H stable stable - pain control and bowel regimen - cont PT - encouraged to use incentive spirometer *Nausa, vomiting- stable now -Zofran PRN - diet dana well *Hypertension- BP stable -will continue amlodipine, ToprolXL with hold parameters *Coronary artery disease -continue Toprol XL, on ASA *Iron-deficiency anemia -MCV wnl -not on home meds *GERD -will continue Protonix *Depression- -not on home meds *FEN Fluids: PO intake adequate Electrolytes: replete as indicated Nutrition: soft DVT prophylaxis: ASA, oob, ambulation, SCDs, TEDs Dispo: Placement Pending,will continue to follow the patient. Thank you for this consultative opportunity. Visit type - Emergency Visit Emergency Visit: Yes ED Registration Date: 05/27/18 Care time: The patient presented to the Emergency Department on the above date and was hospitalized for further evaluation of their emergent condition. - New Patient This patient is new to me today: Yes Date on this admission: 05/31/18 - Critical Care Critical Care patient: No
[2018-05-31] MEDS: amLODIPine BESYLATE 5 MG TABLET (FP) PO SCH (09:38)
[2018-05-31] MEDS: PANTOPRAZOLE 40 MG TABLET (FP) PO SCH (09:38)
[2018-05-31] MEDS: SENNOSIDES/DOCUSATE COMBO (SENNA PLUS) TABLET (UD) PO SCH ×2 (09:38→21:57)
[2018-05-31] MEDS: ASPIRIN COATED 81 MG TABLET.EC PO SCH ×2 (09:38→21:57)
[2018-05-31] MEDS: GABAPENTIN 100 MG CAPSULE (FP) PO SCH ×2 (09:38→21:57)
[2018-05-31] MEDS: MELATONIN 1 MG TABLET PO SCH (21:57)
--- NOTE | 2018-06-01 08:22 | PN ---
Progress Note (short form) - Note Progress Note: POD # 5 right revision TKA patient seen and examined at bedside. Patient is sleeping deeply but responds and is rousable. When asked if she can open her eyes for a few minutes and participate with exam she is unable to cooperated. The nurse states the patient has been active, ambulating with PT, talking on the phone and was up most of the night unable to sleep, she also reports the patient has been confused but is refusing to go to rehab and wants to go home. This morning she is sleeping soundly. Vital Signs Temp 98.4 F 06/01/18 06:00 Pulse 71 06/01/18 06:00 Resp 18 06/01/18 06:00 BP 134/65 06/01/18 06:00 Pulse Ox 96 06/01/18 06:00 Intake & Output 05/31/18 05/31/18 06/01/18 11:59 23:59 11:59 Intake Total 300 250 Output Total 500 Balance -200 250 Intake: Oral 300 250 Output: Urine 500 Void 500 Other: Voiding Method Toilet Toilet # Unmeasured Voids Void 2 Bowel Movement No Yes # Bowel Movements 2 CBC, BMP 06/01/18 08:45 06/01/18 08:45 PE: sleeping soundly, rousable, and states she is cold when blankets are removed. Unlabored resp on RA Right LE with diffuse edema throughout appropriate to status. local areas of irritation consistent with dressing, Incision c/d/i with some oozing just inferior to the knee at the mid-portion, no evidence of collection or active drainage. Eula in situ along incision. SUrrounding tissue intact with no tracking erythema or sign of infection. PROM from 0-75 degrees, patient unable to cooperate with exam. B/L LE compartments soft, supple and non-tender with +PD pulses. +dorsi/plantar flexion intact. Patient could not participate in strength testing. Problem List - Problems (1) S/P total knee arthroplasty Assessment/Plan: POD #5 Right revision TKA with confusion and non-compliance,Patient refusing rehab placement. -Pain control. -DVT PPx: -Chemical: ASA 81mg PO BID x 6 weeks. -Mechanical: LOS's, SCD's. -Incentive spirometry. -PT/OT/Rehab, OOB. -WBAT RLE. -Care per medical hospitalist team. -Discharge planning for rehab vs home with VNS Evaluation and plan discussed with Dr Dennis Danielle. Code(s): Z96.659 - PRESENCE OF UNSPECIFIED ARTIFICIAL KNEE JOINT
[2018-06-01 08:57] LABS: BASO % 0.9 % (0-2.0); EOS % 9.2 % (0-4.5); HEMATOCRIT 30.8 % (32.4-45.2); HEMOGLOBIN 10.3 GM/dl (10.7-15.3); LYMPH % 17.6 % (8-40); MCH 28.4 pg (25.7-33.7); MCHC 33.5 g/dl (32.0-36.0); MEAN CELL VOLUME 84.9 fl (80-96); MEAN PLT VOLUME 8.3 fl (7.5-11.1); MONO % 12.8 % (3.8-10.2); NEUT % 59.5 % (42.8-82.8); PLATELET COUNT 161 K/MM3 (134-434); RBC 3.63 M/mm3 (3.60-5.2); RDW 16.5 % (11.6-15.6); WHITE BLOOD COUNT 6.2 K/mm3 (4.0-10.8)
[2018-06-01 09:24] LABS: ALBUMIN 2.7 g/dl (3.5-5.0); ALK PHOS 67 U/L (32-92); ANION GAP 9 MMOL/L (8-16); BILIRUBIN,TOTAL 0.6 mg/dl (0.2-1.0); BLOOD UREA NITROGEN 9 mg/dl (7-18); CALCIUM 8.5 mg/dl (8.4-10.2); CHLORIDE 106 mmol/L (98-107); CO2 23 mmol/L (22-28); GLUCOSE,RANDOM 106 mg/dl (74-106); MAGNESIUM 1.7 mg/dL (1.8-2.4); POTASSIUM 3.7 mmol/L (3.5-5.1); SGOT/AST 17 U/L (10-42); SGPT/ALT 10 U/L (10-40); SODIUM 138 mmol/L (136-145); TOT PROT 5.6 g/dl (6.4-8.3)
[2018-06-01 09:26] LABS: CREATININE < 0.6 mg/dl (0.6-1.3)
[2018-06-01] MEDS: SENNOSIDES/DOCUSATE COMBO (SENNA PLUS) TABLET (UD) PO SCH (10:33)
[2018-06-01] MEDS: ASPIRIN COATED 81 MG TABLET.EC PO SCH (10:33)
[2018-06-01] MEDS: GABAPENTIN 100 MG CAPSULE (FP) PO SCH (10:33)
[2018-06-01] MEDS: amLODIPine BESYLATE 5 MG TABLET (FP) PO SCH (10:33)
[2018-06-01] MEDS: PANTOPRAZOLE 40 MG TABLET (FP) PO SCH (10:34)
[2018-06-01 14:32] VITALS: BP 115/61; PULSE 73; TEMP 98.9
--- NOTE | 2018-06-01 14:42 | PATH ---
Surgical Pathology Report Patient Name: GINA HERNANDEZ Med. Rec. #: [id number] /Age/Gender: 1935 (Age: 83) / F Account: [id number] Location: [facility] MED[facility] Taken: 05/27/2018 Received: 05/27/2018 Reported: 06/01/2018 Physicians: Last Danielle M.D. Specimen(s) Received A: RIGHT TIBIA PSEUDOMEMBRANE B: RIGHT KNEE EXPLANTS C: RIGHT KNEE BONE Clinical History Mechanical loosening of internal right knee Final Diagnosis A. TIBIA, PSEUDOMEMBRANE, RIGHT, EXCISION: FRAGMENTS OF BENIGN FIBROMEMBRANOUS TO DENSE FIBROCONNECTIVE TISSUE WITH MILD CHRONIC INFLAMMATION AND BONE. B. KNEE EXPLANTS, RIGHT, EXPLANTATION: SURGICAL HARDWARE. MACROSCOPIC DIAGNOSIS. C. BONE, KNEE, RIGHT, REVISION KNEE REPLACEMENT: BONE WITH REACTIVE AND DEGENERATIVE CHANGES. BENIGN DENSE FIBROCONNECTIVE TISSUE AND FIBROADIPOSE TISSUE. Electronically Signed Gina Norris M.D. Gross Description A. Received in formalin labeled "right tibia pseudomembrane," is a 5.0 x 0.3 x 0.2 cm mills portion of fibromembranous material. The specimen is bisected and entirely submitted in one cassette. B. Received fresh labeled "right knee explants," are 2 ro metallic portions of hardware, consistent with knee explants. The specimens measure 18.0 and 26.0 cm in greatest dimension. Also received within the same container are 3 green metallic screws ranging from 3.0-3.8 cm in length. No soft tissue is present. No sections are submitted, gross only. C. Received in formalin labeled "right knee bone," is a 6.3 cm in length mills, cylindrical portion of bone. Ophthalmic Lens Inspector sections are submitted in one cassette, following decalcification. 05/29/201805/29/2018
--- NOTE | 2018-06-01 15:49 | DS ---
"Physical Exam: SUBJECTIVE: Patient seen and examined at bedside POD #5 right revision TKA. Patient has been OOB and ambulating with PT. States her pain is controlled and she is tolerating her diet. OBJECTIVE: Vital Signs Period Temp Pulse Resp BP Sys/Sen Pulse Ox Last 24 Hr 98.4 F-98.9 F 71-74 16-18 115-140/54-65 94-96 PHYSICAL EXAM GENERAL: The patient is awake, alert, and fully oriented, in no acute distress. HEAD: Normal with no signs of trauma. EYES: sclera anicteric, conjunctiva clear. LUNGS: no auditory wheezes, no accessory muscle use on RA EXTREMITIES: Right LE with diffuse edema throughout appropriate to status. local areas of irritation consistent with dressing, Incision c/d/i with some oozing just inferior to the knee at the mid-portion, no evidence of collection or active drainage. Eula in situ along incision. Surrounding tissue intact with no tracking erythema or sign of infection. PROM from 0-75 degrees, patient unable to cooperate with exam. B/L LE compartments soft, supple and non-tender with +PD pulses. +dorsi/plantar flexion intact. NEUROLOGICAL: Cranial nerves II through XII grossly intact. Normal speech, gait not observed. PSYCH: Normal mood, normal affect. SKIN: Warm, dry, normal turgor, no rashes or lesions noted. LABS Laboratory Results - last 24 hr 05/28/18 06/01/18 06/01/18 16:03 08:45 08:45 WBC 6.2 RBC 3.63 Hgb 10.3 L Hct 30.8 L MCV 84.9 MCH 28.4 MCHC 33.5 RDW 16.5 H Plt Count 161 MPV 8.3 Absolute Neuts (auto) 3.6 Neutrophils % 59.5 Lymphocytes % 17.6 Monocytes % 12.8 H Eosinophils % 9.2 H Basophils % 0.9 Sodium 138 Potassium 3.7 Chloride 106 Carbon Dioxide 23 Anion Gap 9 BUN 9 Creatinine < 0.6 L Creat Clearance w eGFR > 60 Random Glucose 106 Calcium 8.5 Magnesium 1.7 L Total Bilirubin 0.6 AST 17 ALT 10 Alkaline Phosphatase 67 Total Protein 5.6 L Albumin 2.7 L Crossmatch See Detail HOSPITAL COURSE: Date of Admission:05/27/18 The patient was admitted to the Med-Surg Unit after an elective repair of their Revision of right TKA. Immediately post op while patient in the OR an xray was obtained and confirmed hardware placement at the right knee, no fractures or dislocations. POD #1 the patient ambulated the hallways with assistance. Narcotic and non- narcotic pain management control was achieved with an oral and IV approach. POD #1, Hgb 8.7 (<--11.6); surgery team ordered 1U PRBC which was transfused, post transfusion labs revealed an appropriate response to transfusion. On POD# 3 the surgical drain was removed fully intact and without incident. Bekah- operative IV ABX were administered. DVT prophylaxis was achieved with SCDs and early ambulation and Aspiring 81mg BID The patient ambulated with Physical Therapy and Rehab was recommended upon discharge. The discharge instructions was reviewed with the patient and all questions answered. Above plan discussed with Dr. Danielle. Date of Discharge: 06/01/18 Minutes to complete discharge: 25 Discharge Summary Reason For Visit: MECHANICAL LOOSENING OF INTERNAL RIGHT KNEE Current Active Problems S/P total knee arthroplasty (Acute) Condition: Improved - Instructions Diet, Activity, Other Instructions: Dr. Danielle Discharge Instructions for Knee Replacement Post Operative Instructions Physical activity Physical Therapist will come to your home for the first 5 days. You will be set up with outpatient PT at your first post-operative visit. Use assistive devices for ambulation at all times. Weight bearing as tolerated on your surgical side. Do not put pillow under knee. May put pillow under heel. Wound care Leave your surgical dressing in place. Do not change the dressing until seen by your surgeon in the office. No baths or showers. Do not submerge your incision. Do not apply any ointments or lotions to your incision. Please call the office if your dressing is soiled/dirty or is falling off. Apply Graduated Compression Stockings (TEDS) to both lower extremities - remove daily for hygiene ONLY. Diet There are no dietary restrictions. Eat healthy, high-fiber foods. Drink 6 to 8 glasses of liquid each day. This will assist in keeping your bowels are regular. Pain management Any pain prescription medication ordered should be taken as prescribed for moderate to severe pain. Do not take additional Tylenol while taking Percocet. Take Aspirin 81 mg two times a day for a total of 6 weeks to prevent blood clots. Call Dr. Danielle for any of the following: Severe pain not relieved by medication Fever of 101 or higher Excessive bleeding or drainage on dressing Inability to urinate If you experience chest pain or shortness of breath, please seek emergency care immediately. Please call the office at to confirm your post-op appointment for the week following surgery. This report was requested by: Julee Pierce | Reference #: [id number] Referrals: Last Danielle MD [Staff Physician] - Disposition: CUSTODIAL FACILITY - Home Medications Comprehensive Discharge Medication List: Ambulatory Orders Amlodipine Besylate [Norvasc -] 5 mg PO DAILY 12/15/17 Gabapentin [Neurontin] 100 mg PO BID 12/15/17 Metoprolol Succinate [Toprol Xl] 50 mg PO DAILY 12/15/17 Aspirin Coated [Ecotrin -] 81 mg PO BID tablet.ec 06/01/18 Sennosides/Docusate Sodium [Pericolace -] 2 tablet PO BID tablet 06/01/18 Problem List - Problems (1) S/P total knee arthroplasty Assessment/Plan: POD #5 Right revision TKA, patient finally agreed to rahab placement with family at bedside -Pain control. -DVT PPx: -Chemical: ASA 81mg PO BID x 6 weeks. -Mechanical: LOS's, SCD's. -Incentive spirometry. -PT/OT/Rehab, OOB. -WBAT RLE. -F/u with Dr Danielle per d/c instructions Evaluation and plan discussed with Dr Dennis Danielle. Code(s): Z96.659 - PRESENCE OF UNSPECIFIED ARTIFICIAL KNEE JOINT This patient is new to me today: Yes Date on this admission: 06/01/18 Emergency Visit: No Critical Care patient: No - Discharge Referral Referred to [facility] No"
== END 2018-06-01 16:30 | DRG 467 ==
LOC: FM/S 08:48
PROVIDERS: ADMIT Orthopaedic Surgery Orthopaedic Surgery of the Spine; ATTEND Orthopaedic Surgery Orthopaedic Surgery of the Spine
PROC: 0SRC0J9 Replacement of Right Knee Joint with Synthetic Substitute, Cemented, Open Approach (ICD-10-PCS; 2018-05-27)
PROC: 30233N1 Transfusion of Nonautologous Red Blood Cells into Peripheral Vein, Percutaneous Approach (ICD-10-PCS; 2018-05-27)
PROC: 0SPC0JZ Removal of Synthetic Substitute from Right Knee Joint, Open Approach (ICD-10-PCS; principal; 2018-05-27 11:00)
DX: T84.032A Mechanical loosening of internal right knee prosthetic joint, initial encounter (principal); D62 Acute posthemorrhagic anemia; Y84.8 Other medical procedures as the cause of abnormal reaction of the patient, or of later complication, without mention of misadventure at the time of the procedure; I10 Essential (primary) hypertension; I25.10 Atherosclerotic heart disease of native coronary artery without angina pectoris; D50.9 Iron deficiency anemia, unspecified; K21.9 Gastro-esophageal reflux disease without esophagitis; F32.9 Major depressive disorder, single episode, unspecified
CPT/HCPCS: 36415; 36430; 36511; 71045-TC-FY; 71046-TC-FY; 73560-TC-RT-FY; 80048; 80053; 80076; 83735; 85025; 85027; 85610; 85730; 86850; 86900; 86901; 86922; 88304-TC; 88305-TC; 88311-TC; 93005; 94760; 97116-GP; 97162-GP; P9038; P9058

== ENCOUNTER 2019-08-25 06:27 | Day surgery (SDC) | payer OTHER, MEDICARE ==
[2019-08-24 09:55] VITALS: BMI 24.5
[2019-08-25] MEDS ORDERED: PROPOFOL 20 ML ONE ×2 (07:49)
[2019-08-25] MEDS ORDERED: SUCCINYLCHOLINE CHLORIDE 200 MG/10 ML SYRINGE ONE (07:49)
[2019-08-25] MEDS ORDERED: ePHEDrine SULFATE 50 MG/1 ML AMPULE ONE ×2 (07:51→08:40)
[2019-08-25] MEDS ORDERED: ceFAZolin SODIUM 1 GM VIAL ONE (08:05)
[2019-08-25] MEDS ORDERED: KETOROLAC TROMETHAMINE 30 MG/1 ML VIAL ONE (08:05)
[2019-08-25] MEDS ORDERED: ONDANSETRON 4 MG/2 ML VIAL IVPUSH PRN (09:30)
[2019-08-25] MEDS ORDERED: PROMETHAZINE HCL 25 MG/1 ML VIAL IVPUSH PRN (09:30)
[2019-08-25] MEDS ORDERED: oxyCODONE HCL 5 MG TABLET PO PRN ×2 (09:30)
--- NOTE | 2019-08-25 09:37 | PN ---
Progress Note (short form) - Note Progress Note: 84F s/p removal of hardware left tibia and removal of infected hardware right tibia #0. (+) Pyogenic granuloma overlying right tibial tubercle screw. -Pain control. -DVT PPx: -Chemical: home AC. -Mechanical: LOS's, SCD's. -Offload heels to prevent heel ulcers. -Incentive spirometry q15 min. -PT/OT/Rehab, OOB to chair daily; ambulate minimum TID. -WBAT B/L LE. -f/u intra-op right knee wound cultures & pathology. -Discharge planning: f/u [facility] Friday08/30/2019; call for appointment. -Keep dressing clean and dry. -Keflex, Bactrim, Bacid, and Toradol ordered to patient's pharmacy. Dennis Danielle MD (Orthopaedic Surgery).
--- NOTE | 2019-08-25 09:38 | OP ---
Operative Note - Note: Operative Date: 08/25/19 Pre-Operative Diagnosis: Loose/backing out/failed hardware bilateral tibias. Operation: 1. Removal of hardware left tibia. 2. Removal of hardware right tibia. 3. I&D right tibial pyogenic granuloma Post-Operative Diagnosis: Same as Pre-op Surgeon: Last Danielle Waxer Floor: Dennis Danielle Anesthesiologist/QUALITY CONTROL LAB TECHNICIAN: Jose Cruz Del Real Anesthesia: General Specimens Removed: Hardware. Right tibial culture specimens Estimated Blood Loss (mls): 0 Fluid Volume Replaced (mls): 500 (Crystalloid) Operative Report Dictated: Yes
[2019-08-25 09:54] VITALS: TEMP 97.4
[2019-08-25 11:39] VITALS: BP 122/68; PULSE 66
--- NOTE | 2019-08-25 15:41 | OP ---
DATE OF OPERATION: 08/25/2019 SURGEON: Last Danielle MD TIRE SPOTTER: Dennis Danielle MD PREOPERATIVE DIAGNOSES: 1. Left broad and virtually perforating backing of the tibial osteotomy AO screw of the left proximal tibia. 2. Pyogenic granuloma and infected screw, right proximal tibia, with associated cellulitis, right leg. POSTOPERATIVE DIAGNOSES: 1. Left broad and virtually perforating backing of the tibial osteotomy AO screw of the left proximal tibia. 2. Pyogenic granuloma and infected screw, right proximal tibia, with associated cellulitis, right leg. OPERATION PERFORMED: 1. Left tibia removal of hardware. 2. Right tibia removal of hardware and debridement of tissues. ANESTHESIA: General. ANTIBIOTICS GIVEN: Ancef 2 g, 1 g vancomycin. OPERATION DETAILS: 1. Patient correctly identified, brought into the operating room. Both lower extremities were prepped and draped in the routine manner with Betadine scrub solution, wiped off with alcohol, DuraPrep applied. On the left-hand side the prior screw was subcutaneous. It did not perforate in through the skin. A small incision was made over the screw with a 15-blade knife. Soft tissues were dissected off the actual screw heads, and the screw and washer were removed with no difficulty. The tissues were lavaged. They were perfectly clear and clean, and the skin was closed with 3-0 nylon interrupted vertical mattress sutures, a light dressing applied. 2. Right knee: A pyogenic granuloma and purulent discharge from the proximal tibial region on the right. This was debrided expectantly. The defect ulcerated skin area was opened by extending with 1 cm long and 1 cm distal incisions to gain easy access to the hardware that was causing this infection. This was also screw as on the contralateral side. Using the AO screwdriver, this was removed with no difficulty. The entire bone bed and soft tissue elements were resected using rongeurs and cleaned up completely. It appeared to be completely normal, healthy once this had been completed. Tissues were sent for culture and sensitivity. Once we cleared the tissue bed and debrided the bone bed as well as the soft tissue accordingly, the skin was closed with No. 3-0 vertical mattress sutures to bring about approximation of the soft tissue to act as a biological dressing. The primary principle here would be to allow this wound to granulate from the base up, but because of the exposed bone, I elected to use her own soft tissues as biological dressing, hoping it will heal over this. If not, the wounds will be opened and Iodoform and local Betadine dressings will be utilized. This may take a number of months to seal up and close, even at risk of the presence of osteomyelitis of the tibia. It was elected to treat this with a primary closure. If the wound breaks down, it will be opened and treated with secondary intention. Patient tolerated the procedure well, was discharged home on antibiotics Keflex and Bactrim. MD HOWARD Ham/[id number]
--- NOTE | 2019-08-27 15:55 | PATH ---
Surgical Pathology Report Patient Name: ABBIE HERNANDEZ Med. Rec. #: [id number] /Age/Gender: 1935 (Age: 84) / F Account: [id number] Location: [facility] Taken: 08/25/2019 Received: 08/25/2019 Reported: 08/27/2019 Physicians: Last Danielle M.D. Specimen(s) Received A: LEFT TIBIA HARDWARE B: RIGHT TIBIA HARDWARE Clinical History Failed hardware left tibia, infected hardware right tibia Final Diagnosis A. HARDWARE, LEFT TIBIA, REMOVAL: HARDWARE, DESCRIBED (GROSS EXAMINATION ONLY). B. HARDWARE, RIGHT TIBIA REMOVAL: HARDWARE, DESCRIBED (GROSS EXAMINATION ONLY). Electronically Signed Patrica Reed M.D. Gross Description A. Received fresh labeled "left tibia hardware," is a 5.0 cm in length ro metallic screw as well as a 0.7 cm in diameter x 0.1 cm in depth villa metallic washer. No soft tissue is present. No sections are submitted, gross only. B. Received fresh labeled "right tibia hardware," is a 2.3 cm in length villa metallic screw as well as a 0.7 cm in diameter x 0.1 cm in depth villa metallic washer. No soft tissue is present. No sections are submitted, gross only. /08/25/2019 saudi/08/25/2019
== END 2019-08-25 11:51 | disposition home or self-care (01) ==
LOC: FASU 06:27
PROVIDERS: ATTEND Orthopaedic Surgery Orthopaedic Surgery of the Spine
PROC: 0JBN0ZZ Excision of Right Lower Leg Subcutaneous Tissue and Fascia, Open Approach (ICD-10-PCS; 2019-08-25)
PROC: 0QPH04Z Removal of Internal Fixation Device from Left Tibia, Open Approach (ICD-10-PCS; principal; 2019-08-25 08:31)
PROC: 0QPG04Z Removal of Internal Fixation Device from Right Tibia, Open Approach (ICD-10-PCS; 2019-08-25 08:31)
DX: T84.117A Breakdown (mechanical) of internal fixation device of bone of left lower leg, initial encounter (principal); Y79.3 Surgical instruments, materials and orthopedic devices (including sutures) associated with adverse incidents; Y92.9 Unspecified place or not applicable; T84.622A Infection and inflammatory reaction due to internal fixation device of right tibia, initial encounter; L98.0 Pyogenic granuloma; L03.115 Cellulitis of right lower limb
CPT/HCPCS: 87070; 87075; 87077; 87186; 87205; 88300-TC; 94760

== ENCOUNTER 2022-03-25 14:08 | Inpatient (IN) | payer OTHER, MEDICARE ==
[2022-03-25 15:23] LABS: HEMATOCRIT 36.7 % (32.4-45.2); HEMOGLOBIN 12.3 G/dL (10.7-15.3); MCH 29.1 pg (25.7-33.7); MCHC 33.5 g/dl (32.0-36.0); MEAN CELL VOLUME 86.7 fl (80-96); MEAN PLT VOLUME 9.1 fl (7.5-11.1); PLATELET COUNT 238.6 10^3/uL (134-434); RBC 4.23 10^6/uL (3.60-5.2); RDW 16.2 % (11.6-15.6)
[2022-03-25 15:41] LABS: ALBUMIN 3.1 g/dl (3.4-5.0); BILIRUBIN,TOTAL 1.9 mg/dl (0.2-1); CALCIUM 9.5 mg/dl (8.5-10); CREATININE 0.7 mg/dl (0.55-1.3); TOT PROT 6.4 g/dl (6.4-8.2)
[2022-03-25 15:51] LABS: PLATELET ESTIMATE ADEQUATE
[2022-03-25] MEDS ORDERED: HALOPERIDOL LACTATE 5 MG/ML IM ONE (16:24)
[2022-03-25] MEDS ORDERED: VANCOMYCIN 1,000 MG in DEXTROSE 5%-WATER - 250 ML IVPB ONE (16:36)
[2022-03-25] MEDS ORDERED: HALOPERIDOL LACTATE 5 MG/ML ONE (16:36)
[2022-03-25] MEDS ORDERED: HALOPERIDOL LACTATE 5 MG/ML IV ONE (16:36)
[2022-03-25] MEDS ORDERED: VANCOMYCIN 1,000 MG VIAL (RESTRICTED TO ID ONLY) ONE (16:52)
[2022-03-25 17:14] LABS: CALCIUM 9.5 mg/dl (8.5-10); CREATININE 0.5 mg/dl (0.55-1.3)
[2022-03-25] MEDS ORDERED: AMPICILLIN NA/SULBACTAM NA 1.5 GM in SODIUM CHLORIDE 100 ML IVPB ONE (18:17)
[2022-03-25] MEDS ORDERED: AMPICILLIN NA/SULBACTAM NA 1.5 GM VIAL ONE (18:28)
[2022-03-25] MEDS ORDERED: DOCUSATE SODIUM 100 MG CAPSULE (FP) PO PRN (19:26)
[2022-03-25] MEDS ORDERED: POTASSIUM CHLORIDE TABS 20 MEQ TABLET.ER (FP) PO ONE (19:27)
[2022-03-25] MEDS ORDERED: ACETAMINOPHEN 1000 MG/100 ML BAG IVPB PRN (19:30)
[2022-03-25] MEDS: ATORVASTATIN CA 20 MG TABLET (FP) PO SCH (21:51)
[2022-03-25] MEDS: ALPRAZolam 0.25 MG TABLET PO PRN (21:51)
[2022-03-25] MEDS: D5-NS + 20 MEQ KCL - 20 MEQ/1,000 ML INFUS.BAG IV SCH (21:52)
[2022-03-26] MEDS: ALPRAZolam 0.25 MG TABLET PO PRN ×3 (01:26→21:19)
[2022-03-26] MEDS ORDERED: HALOPERIDOL LACTATE 5 MG/ML IM ONE (02:36)
[2022-03-26] MEDS: AMPICILLIN NA/SULBACTAM NA 1.5 GM in SODIUM CHLORIDE 100 ML IVPB SCH ×4 (02:43→21:19)
[2022-03-26] MEDS: VANCOMYCIN 1 GM in D5W (PRE-DOCKED) 1,000 MG/250 ML IVPB SCH ×2 (05:59→17:39)
[2022-03-26] MEDS ORDERED: VANCOMYCIN 1 GM in D5W (PRE-DOCKED) 1,000 MG/250 ML IVPB SCH (06:00)
[2022-03-26 07:18] LABS: HEMATOCRIT 32.4 % (32.4-45.2); HEMOGLOBIN 10.9 G/dL (10.7-15.3); MCH 29.2 pg (25.7-33.7); MCHC 33.6 g/dl (32.0-36.0); MEAN CELL VOLUME 86.9 fl (80-96); MEAN PLT VOLUME 7.9 fl (7.5-11.1); PLATELET COUNT 171.9 10^3/uL (134-434); RBC 3.73 10^6/uL (3.60-5.2)
[2022-03-26 07:36] LABS: CALCIUM 8.8 mg/dl (8.5-10); CREATININE 0.5 mg/dl (0.55-1.3)
[2022-03-26 09:38] LABS: ACTIVATED PTT 34.5 SECONDS (25.2-36.5); INR 1.42 (0.83-1.09); PROTHROMBIN TIME (PATIENT) 16.4 SEC (9.7-13.0)
[2022-03-26] MEDS: CITALOPRAM HYDROBROMIDE 10 MG TABLET PO SCH (09:58)
[2022-03-26] MEDS: amLODIPine BESYLATE 5 MG TABLET (FP) PO SCH (09:58)
[2022-03-26] MEDS ORDERED: POTASSIUM CHLORIDE ORAL LIQUID 20 MEQ/15 ML PO ONE (14:45)
[2022-03-26] MEDS ORDERED: LORazepam 2 MG/ML SDV VIAL IM ONE (15:10)
[2022-03-26] MEDS: HEPARIN NA (PORCINE) 5,000 UNITS/ML 1ML VIAL SQ SCH ×2 (15:14→21:21)
[2022-03-26] MEDS: ATORVASTATIN CA 20 MG TABLET (FP) PO SCH (21:22)
[2022-03-26] MEDS: D5-NS + 20 MEQ KCL - 20 MEQ/1,000 ML INFUS.BAG IV SCH (21:22)
[2022-03-27] MEDS: HEPARIN NA (PORCINE) 5,000 UNITS/ML 1ML VIAL SQ SCH ×3 (03:00→21:38)
[2022-03-27] MEDS: AMPICILLIN NA/SULBACTAM NA 1.5 GM in SODIUM CHLORIDE 100 ML IVPB SCH (03:08)
[2022-03-27 08:43] LABS: ALBUMIN 2.4 g/dl (3.4-5.0); BILIRUBIN,TOTAL 0.4 mg/dl (0.2-1); CALCIUM 8.9 mg/dl (8.5-10); CREATININE 0.4 mg/dl (0.55-1.3); MAGNESIUM 1.6 mg/dL (1.8-2.4); TOT PROT 5.9 g/dl (6.4-8.2)
[2022-03-27] MEDS ORDERED: POTASSIUM CHLORIDE TABS 10 MEQ TABLET.ER (FP) PO ONE (09:01)
[2022-03-27] MEDS: VANCOMYCIN 1 GRAM (PRE-DOCKED) 1 GM/250 ML BAG IVPB SCH ×2 (09:37→20:37)
[2022-03-27] MEDS: ALPRAZolam 0.25 MG TABLET PO PRN ×2 (09:44→21:39)
[2022-03-27] MEDS: amLODIPine BESYLATE 5 MG TABLET (FP) PO SCH (09:45)
[2022-03-27] MEDS: CITALOPRAM HYDROBROMIDE 10 MG TABLET PO SCH (09:45)
[2022-03-27 10:17] LABS: BASO % 0.2 % (0-2.0); EOS % 8.5 % (0-4.5); HEMATOCRIT 33.6 % (32.4-45.2); MCH 27.6 pg (25.7-33.7); MCHC 32.7 g/dl (32.0-36.0); MEAN CELL VOLUME 84.5 fl (80-96); MEAN PLT VOLUME 8.1 fl (7.5-11.1); MONO % 10.6 % (3.8-10.2); NEUT % 59.7 % (42.8-82.8); PLATELET COUNT 223 10^3/uL (134-434); RBC 3.97 M/mm3 (3.60-5.2); RDW 15.9 % (11.6-15.6)
[2022-03-27] MEDS ORDERED: MAGNESIUM SULF 50% (8.12 MEQ/2 ML-1 GM VIAL) IVPB ONE (10:48)
[2022-03-27] MEDS ORDERED: D5-NS + 20 MEQ KCL - 20 MEQ/1,000 ML INFUS.BAG IV SCH (10:51)
[2022-03-27] MEDS ORDERED: MAGNESIUM SULFATE IN WATER 2 GM/50 ML IVPB IVPB ONE (11:00)
[2022-03-27] MEDS: PIPERACILLIN/TAZOB 3.375 GM 3.375 GM in DEXTROSE 5%-WATER - 50 ML IVPB SCH ×2 (11:56→18:08)
[2022-03-27] MEDS ORDERED: POTASSIUM CHLORIDE TABS 20 MEQ TABLET.ER (FP) PO ONE (17:00)
[2022-03-27] MEDS: ACETAMINOPHEN 325 MG TABLET (FP) PO PRN (21:35)
[2022-03-27] MEDS: ATORVASTATIN CA 20 MG TABLET (FP) PO SCH (21:39)
[2022-03-27] MEDS: OLANZAPINE 2.5 MG, OLANZAPINE 5 MG PO SCH (21:39)
[2022-03-27] MEDS ORDERED: OLANZapine 7.5 MG TABLET PO SCH (22:00)
[2022-03-28] MEDS: PIPERACILLIN/TAZOB 3.375 GM 3.375 GM in DEXTROSE 5%-WATER - 50 ML IVPB SCH ×3 (02:10→18:09)
[2022-03-28] MEDS: HEPARIN NA (PORCINE) 5,000 UNITS/ML 1ML VIAL SQ SCH ×3 (06:09→21:33)
[2022-03-28 08:28] LABS: ALBUMIN 2.8 g/dl (3.4-5.0); BILIRUBIN,TOTAL 0.8 mg/dl (0.2-1); CALCIUM 9.4 mg/dl (8.5-10); CREATININE 0.5 mg/dl (0.55-1.3); TOT PROT 6.6 g/dl (6.4-8.2)
[2022-03-28] MEDS: amLODIPine BESYLATE 5 MG TABLET (FP) PO SCH (09:32)
[2022-03-28] MEDS: ALPRAZolam 0.25 MG TABLET PO PRN (09:32)
[2022-03-28] MEDS: VANCOMYCIN 1 GRAM (PRE-DOCKED) 1 GM/250 ML BAG IVPB SCH ×2 (09:33→21:33)
[2022-03-28 15:23] LABS: EOS % 8.1 % (0-4.5); HEMATOCRIT 34.9 % (32.4-45.2); HEMOGLOBIN 11.7 GM/dL (10.7-15.3); LYMPH % 19.9 % (8-40); MCH 28.5 pg (25.7-33.7); MCHC 33.6 g/dl (32.0-36.0); MEAN CELL VOLUME 84.7 fl (80-96); MEAN PLT VOLUME 7.6 fl (7.5-11.1); MONO % 14.2 % (3.8-10.2); NEUT % 56.8 % (42.8-82.8); PLATELET COUNT 250 10^3/uL (134-434); RBC 4.13 M/mm3 (3.60-5.2); RDW 15.4 % (11.6-15.6)
[2022-03-28] MEDS: OLANZAPINE 2.5 MG, OLANZAPINE 5 MG PO SCH (21:33)
[2022-03-28] MEDS: ATORVASTATIN CA 20 MG TABLET (FP) PO SCH (21:33)
[2022-03-28] MEDS: ACETAMINOPHEN 325 MG TABLET (FP) PO PRN (21:33)
[2022-03-29] MEDS: PIPERACILLIN/TAZOB 3.375 GM 3.375 GM in DEXTROSE 5%-WATER - 50 ML IVPB SCH ×3 (03:00→18:15)
[2022-03-29] MEDS: HEPARIN NA (PORCINE) 5,000 UNITS/ML 1ML VIAL SQ SCH ×3 (06:14→21:25)
[2022-03-29] MEDS: D5-NS + 20 MEQ KCL - 20 MEQ/1,000 ML INFUS.BAG IV SCH ×2 (09:08→09:09)
[2022-03-29] MEDS: amLODIPine BESYLATE 5 MG TABLET (FP) PO SCH (10:43)
[2022-03-29] MEDS: VANCOMYCIN 1 GRAM (PRE-DOCKED) 1 GM/250 ML BAG IVPB SCH ×2 (10:44→21:24)
[2022-03-29] MEDS: ATORVASTATIN CA 20 MG TABLET (FP) PO SCH (21:25)
[2022-03-29] MEDS: ACETAMINOPHEN 325 MG TABLET (FP) PO PRN (21:25)
[2022-03-29] MEDS: OLANZAPINE 2.5 MG, OLANZAPINE 5 MG PO SCH (21:25)
[2022-03-30] MEDS: PIPERACILLIN/TAZOB 3.375 GM 3.375 GM in DEXTROSE 5%-WATER - 50 ML IVPB SCH ×3 (03:21→17:11)
[2022-03-30] MEDS: HEPARIN NA (PORCINE) 5,000 UNITS/ML 1ML VIAL SQ SCH ×3 (06:40→21:24)
[2022-03-30] MEDS: amLODIPine BESYLATE 5 MG TABLET (FP) PO SCH (10:13)
[2022-03-30] MEDS: D5-NS + 20 MEQ KCL - 20 MEQ/1,000 ML INFUS.BAG IV SCH ×2 (10:15→10:16)
[2022-03-30] MEDS ORDERED: VANCOMYCIN 1 GM in D5W (PRE-DOCKED) 1,000 MG/250 ML IVPB SCH (21:00)
[2022-03-30] MEDS: ACETAMINOPHEN 325 MG TABLET (FP) PO PRN (21:23)
[2022-03-30] MEDS: ATORVASTATIN CA 20 MG TABLET (FP) PO SCH (21:23)
[2022-03-30] MEDS: OLANZAPINE 2.5 MG, OLANZAPINE 5 MG PO SCH (21:23)
[2022-03-31] MEDS ORDERED: LORazepam 2 MG/ML SDV VIAL IM ONE (00:59)
[2022-03-31] MEDS: PIPERACILLIN/TAZOB 3.375 GM 3.375 GM in DEXTROSE 5%-WATER - 50 ML IVPB SCH ×2 (02:10→10:26)
[2022-03-31] MEDS: HEPARIN NA (PORCINE) 5,000 UNITS/ML 1ML VIAL SQ SCH ×3 (06:00→21:31)
[2022-03-31 08:19] LABS: CALCIUM 9.4 mg/dl (8.5-10); CREATININE 0.7 mg/dl (0.55-1.3)
[2022-03-31] MEDS: amLODIPine BESYLATE 5 MG TABLET (FP) PO SCH (10:26)
[2022-03-31] MEDS: AMPICILLIN NA/SULBACTAM NA 1.5 GM in SODIUM CHLORIDE 100 ML IVPB SCH ×3 (12:34→21:31)
[2022-03-31] MEDS: D5-NS + 20 MEQ KCL - 20 MEQ/1,000 ML INFUS.BAG IV SCH (14:57)
[2022-03-31] MEDS: ATORVASTATIN CA 20 MG TABLET (FP) PO SCH (21:32)
[2022-03-31] MEDS: OLANZAPINE 2.5 MG, OLANZAPINE 5 MG PO SCH (21:32)
[2022-03-31] MEDS ORDERED: AMOXICILLIN 500 MG CAPSULE (FP) PO SCH (22:00)
[2022-04-01] MEDS: AMPICILLIN NA/SULBACTAM NA 1.5 GM in SODIUM CHLORIDE 100 ML IVPB SCH ×4 (03:21→20:21)
[2022-04-01] MEDS: HEPARIN NA (PORCINE) 5,000 UNITS/ML 1ML VIAL SQ SCH ×3 (06:25→21:36)
[2022-04-01 08:42] LABS: ALBUMIN 2.7 g/dl (3.4-5.0); BILIRUBIN,TOTAL 0.5 mg/dl (0.2-1); CALCIUM 9.5 mg/dl (8.5-10); CREATININE 0.6 mg/dl (0.55-1.3); MAGNESIUM 1.9 mg/dL (1.8-2.4); TOT PROT 6.2 g/dl (6.4-8.2)
[2022-04-01] MEDS: D5-NS + 20 MEQ KCL - 20 MEQ/1,000 ML INFUS.BAG IV SCH (08:47)
[2022-04-01 08:52] LABS: BASO % 0.9 % (0-2.0); EOS % 15.2 % (0-4.5); HEMATOCRIT 34.9 % (32.4-45.2); HEMOGLOBIN 11.3 GM/dL (10.7-15.3); LYMPH % 22.2 % (8-40); MCH 27.5 pg (25.7-33.7); MCHC 32.4 g/dl (32.0-36.0); MEAN CELL VOLUME 85.1 fl (80-96); MEAN PLT VOLUME 7.7 fl (7.5-11.1); NEUT % 50.7 % (42.8-82.8); PLATELET COUNT 257 10^3/uL (134-434); RDW 15.7 % (11.6-15.6)
[2022-04-01] MEDS: amLODIPine BESYLATE 5 MG TABLET (FP) PO SCH (10:00)
[2022-04-01] MEDS: AMINO ACIDS/PROTEIN HYDROLYS 30 ML LIQUID.PKT PO SCH (16:55)
[2022-04-01] MEDS ORDERED: AMPICILLIN NA/SULBACTAM NA 1.5 GM VIAL ONE (20:04)
[2022-04-01] MEDS: ACETAMINOPHEN 325 MG TABLET (FP) PO PRN (20:21)
[2022-04-01] MEDS: OLANZAPINE 2.5 MG, OLANZAPINE 5 MG PO SCH (21:34)
[2022-04-01] MEDS: ATORVASTATIN CA 20 MG TABLET (FP) PO SCH (21:34)
[2022-04-02] MEDS: AMPICILLIN NA/SULBACTAM NA 1.5 GM in SODIUM CHLORIDE 100 ML IVPB SCH ×4 (02:16→20:22)
[2022-04-02] MEDS: HEPARIN NA (PORCINE) 5,000 UNITS/ML 1ML VIAL SQ SCH (06:26)
[2022-04-02] MEDS: D5-NS + 20 MEQ KCL - 20 MEQ/1,000 ML INFUS.BAG IV SCH (08:23)
[2022-04-02] MEDS: AMINO ACIDS/PROTEIN HYDROLYS 30 ML LIQUID.PKT PO SCH ×2 (08:23→17:49)
[2022-04-02 08:35] LABS: ALBUMIN 2.7 g/dl (3.4-5.0); BILIRUBIN,TOTAL 0.5 mg/dl (0.2-1); CALCIUM 9.2 mg/dl (8.5-10); CREATININE 0.5 mg/dl (0.55-1.3); MAGNESIUM 1.8 mg/dL (1.8-2.4); TOT PROT 6.4 g/dl (6.4-8.2)
[2022-04-02] MEDS: amLODIPine BESYLATE 5 MG TABLET (FP) PO SCH (09:34)
[2022-04-02] MEDS: ALPRAZolam 1 MG TABLET PO PRN ×2 (09:57→22:13)
[2022-04-02 10:16] LABS: BASO % 0.9 % (0-2.0); EOS % 14.4 % (0-4.5); HEMATOCRIT 35.7 % (32.4-45.2); HEMOGLOBIN 11.6 GM/dL (10.7-15.3); LYMPH % 21.9 % (8-40); MCH 27.6 pg (25.7-33.7); MCHC 32.4 g/dl (32.0-36.0); MEAN CELL VOLUME 85.2 fl (80-96); MEAN PLT VOLUME 8.2 fl (7.5-11.1); NEUT % 51.8 % (42.8-82.8); PLATELET COUNT 240 10^3/uL (134-434); RBC 4.18 M/mm3 (3.60-5.2); WHITE BLOOD COUNT 6.8 K/mm3 (4.0-10.0)
[2022-04-02] MEDS: OLANZAPINE 2.5 MG, OLANZAPINE 5 MG PO SCH (21:09)
[2022-04-02] MEDS: ATORVASTATIN CA 20 MG TABLET (FP) PO SCH (21:10)
[2022-04-02] MEDS: ACETAMINOPHEN 325 MG TABLET (FP) PO PRN (21:10)
[2022-04-03] MEDS: AMPICILLIN NA/SULBACTAM NA 1.5 GM in SODIUM CHLORIDE 100 ML IVPB SCH ×2 (02:16→09:27)
[2022-04-03 08:57] LABS: ALBUMIN 2.6 g/dl (3.4-5.0); BILIRUBIN,TOTAL 0.4 mg/dl (0.2-1); CALCIUM 8.8 mg/dl (8.5-10); CREATININE 0.6 mg/dl (0.55-1.3); MAGNESIUM 1.8 mg/dL (1.8-2.4)
[2022-04-03] MEDS: D5-NS + 20 MEQ KCL - 20 MEQ/1,000 ML INFUS.BAG IV SCH (09:27)
[2022-04-03 09:36] LABS: BASO % 0.6 % (0-2.0); EOS % 13.6 % (0-4.5); HEMATOCRIT 34.5 % (32.4-45.2); HEMOGLOBIN 11.2 GM/dL (10.7-15.3); LYMPH % 17.7 % (8-40); MCHC 32.6 g/dl (32.0-36.0); MEAN PLT VOLUME 7.6 fl (7.5-11.1); MONO % 9.3 % (3.8-10.2); NEUT % 58.8 % (42.8-82.8); PLATELET COUNT 216 10^3/uL (134-434); RBC 4.01 M/mm3 (3.60-5.2); RDW 15.8 % (11.6-15.6); WHITE BLOOD COUNT 7.3 K/mm3 (4.0-10.0)
[2022-04-03] MEDS: AMINO ACIDS/PROTEIN HYDROLYS 30 ML LIQUID.PKT PO SCH ×2 (11:10→17:33)
[2022-04-03] MEDS: amLODIPine BESYLATE 5 MG TABLET (FP) PO SCH (11:10)
[2022-04-03] MEDS: ALPRAZolam 1 MG TABLET PO PRN ×2 (11:10→21:08)
[2022-04-03] MEDS: PIPERACILLIN/TAZOB 3.375 GM 3.375 GM in DEXTROSE 5%-WATER - 50 ML IVPB SCH ×2 (16:01→23:00)
[2022-04-03] MEDS: ATORVASTATIN CA 20 MG TABLET (FP) PO SCH (21:08)
[2022-04-03] MEDS: OLANZapine 2.5 MG TABLET PO SCH (21:08)
[2022-04-03] MEDS: ACETAMINOPHEN 325 MG TABLET (FP) PO PRN (21:08)
[2022-04-04] MEDS: PIPERACILLIN/TAZOB 3.375 GM 3.375 GM in DEXTROSE 5%-WATER - 50 ML IVPB SCH (06:56)
[2022-04-04 08:31] LABS: ALBUMIN 2.7 g/dl (3.4-5.0); BILIRUBIN,TOTAL 0.6 mg/dl (0.2-1); CALCIUM 9.2 mg/dl (8.5-10); CREATININE 0.6 mg/dl (0.55-1.3); TOT PROT 6.4 g/dl (6.4-8.2)
[2022-04-04 09:24] LABS: BASO % 0.7 % (0-2.0); EOS % 0.4 % (0-4.5); HEMATOCRIT 38.8 % (32.4-45.2); HEMOGLOBIN 12.7 GM/dL (10.7-15.3); LYMPH % 8.2 % (8-40); MCH 28.2 pg (25.7-33.7); MCHC 32.7 g/dl (32.0-36.0); MEAN CELL VOLUME 86.2 fl (80-96); MEAN PLT VOLUME 7.7 fl (7.5-11.1); MONO % 7.9 % (3.8-10.2); NEUT % 82.8 % (42.8-82.8); PLATELET COUNT 205 10^3/uL (134-434); RDW 15.7 % (11.6-15.6); WHITE BLOOD COUNT 10.8 K/mm3 (4.0-10.0)
[2022-04-04] MEDS: amLODIPine BESYLATE 5 MG TABLET (FP) PO SCH ×2 (09:24→09:30)
[2022-04-04] MEDS: ALPRAZolam 1 MG TABLET PO PRN (09:24)
[2022-04-04] MEDS: D5-NS + 20 MEQ KCL - 20 MEQ/1,000 ML INFUS.BAG IV SCH (09:24)
[2022-04-04] MEDS: AMINO ACIDS/PROTEIN HYDROLYS 30 ML LIQUID.PKT PO SCH ×2 (09:25→18:00)
[2022-04-04] MEDS ORDERED: POTASSIUM CHLORIDE TABS 10 MEQ TABLET.ER (FP) PO ONE (10:15)
[2022-04-04] MEDS: AMPICILLIN NA/SULBACTAM NA 3 GM in SODIUM CHLORIDE 100 ML IVPB SCH ×3 (11:56→20:18)
[2022-04-04] MEDS: ACETAMINOPHEN 325 MG TABLET (FP) PO PRN (14:56)
[2022-04-04] MEDS: OLANZapine 2.5 MG TABLET PO SCH (21:24)
[2022-04-04] MEDS: ATORVASTATIN CA 20 MG TABLET (FP) PO SCH (21:24)
[2022-04-05] MEDS: AMPICILLIN NA/SULBACTAM NA 3 GM in SODIUM CHLORIDE 100 ML IVPB SCH ×2 (02:27→09:52)
[2022-04-05] MEDS: ALPRAZolam 1 MG TABLET PO PRN (03:38)
[2022-04-05 08:37] LABS: ALBUMIN 2.3 g/dl (3.4-5.0); BILIRUBIN,TOTAL 0.5 mg/dl (0.2-1); CREATININE 0.5 mg/dl (0.55-1.3); TOT PROT 5.7 g/dl (6.4-8.2)
[2022-04-05] MEDS: amLODIPine BESYLATE 5 MG TABLET (FP) PO SCH (09:51)
[2022-04-05] MEDS: AMINO ACIDS/PROTEIN HYDROLYS 30 ML LIQUID.PKT PO SCH ×2 (09:52→17:06)
[2022-04-05] MEDS: D5-NS + 20 MEQ KCL - 20 MEQ/1,000 ML INFUS.BAG IV SCH (09:53)
[2022-04-05 09:54] LABS: BASO % 0.6 % (0-2.0); EOS % 4.9 % (0-4.5); HEMOGLOBIN 11.2 GM/dL (10.7-15.3); MCH 27.3 pg (25.7-33.7); MEAN CELL VOLUME 85.5 fl (80-96); MEAN PLT VOLUME 8.1 fl (7.5-11.1); MONO % 11.6 % (3.8-10.2); NEUT % 68.9 % (42.8-82.8); PLATELET COUNT 215 10^3/uL (134-434); RDW 15.8 % (11.6-15.6); WHITE BLOOD COUNT 8.9 K/mm3 (4.0-10.0)
[2022-04-05] MEDS: AMOX TR/POT CLAV 500MG/125MG TABLETS (FP) PO SCH (17:05)
[2022-04-05] MEDS: OLANZapine 2.5 MG TABLET PO SCH (21:40)
[2022-04-05] MEDS: ATORVASTATIN CA 20 MG TABLET (FP) PO SCH (21:40)
[2022-04-06] MEDS: D5-NS + 20 MEQ KCL - 20 MEQ/1,000 ML INFUS.BAG IV SCH (08:33)
[2022-04-06] MEDS: AMINO ACIDS/PROTEIN HYDROLYS 30 ML LIQUID.PKT PO SCH ×2 (08:44→17:03)
[2022-04-06] MEDS: AMOX TR/POT CLAV 500MG/125MG TABLETS (FP) PO SCH ×2 (09:19→16:55)
[2022-04-06] MEDS: amLODIPine BESYLATE 5 MG TABLET (FP) PO SCH (09:19)
[2022-04-06] MEDS ORDERED: POTASSIUM CHLORIDE TABS 20 MEQ TABLET.ER (FP) PO ONE (11:51)
[2022-04-06] MEDS ORDERED: POTASSIUM CHLORIDE ORAL LIQUID 20 MEQ/15 ML PO ONE (12:00)
[2022-04-06] MEDS: ACETAMINOPHEN 325 MG TABLET (FP) PO PRN (23:05)
[2022-04-06] MEDS: HEPARIN NA (PORCINE) 5,000 UNITS/ML 1ML VIAL SQ SCH (23:05)
[2022-04-06] MEDS: OLANZapine 2.5 MG TABLET PO SCH (23:05)
[2022-04-06] MEDS: ATORVASTATIN CA 20 MG TABLET (FP) PO SCH (23:05)
[2022-04-07] MEDS: AMOX TR/POT CLAV 500MG/125MG TABLETS (FP) PO SCH ×2 (08:06→16:47)
[2022-04-07] MEDS: D5-NS + 20 MEQ KCL - 20 MEQ/1,000 ML INFUS.BAG IV SCH (08:22)
[2022-04-07] MEDS: AMINO ACIDS/PROTEIN HYDROLYS 30 ML LIQUID.PKT PO SCH ×2 (08:24→16:48)
[2022-04-07 09:24] LABS: CALCIUM 9.2 mg/dl (8.5-10); CREATININE 0.4 mg/dl (0.55-1.3)
[2022-04-07] MEDS: amLODIPine BESYLATE 5 MG TABLET (FP) PO SCH (11:20)
[2022-04-07] MEDS: HEPARIN NA (PORCINE) 5,000 UNITS/ML 1ML VIAL SQ SCH ×2 (11:20→21:14)
[2022-04-07] MEDS: ACETAMINOPHEN 325 MG TABLET (FP) PO PRN (15:33)
[2022-04-07] MEDS ORDERED: ALPRAZolam 1 MG TABLET PO ONE (21:02)
[2022-04-07] MEDS: ATORVASTATIN CA 20 MG TABLET (FP) PO SCH (21:14)
[2022-04-08 01:53] VITALS: RESP 18
[2022-04-08] MEDS: amLODIPine BESYLATE 5 MG TABLET (FP) PO SCH (09:21)
[2022-04-08] MEDS: HEPARIN NA (PORCINE) 5,000 UNITS/ML 1ML VIAL SQ SCH (09:21)
[2022-04-08] MEDS: AMOX TR/POT CLAV 500MG/125MG TABLETS (FP) PO SCH (09:21)
[2022-04-08] MEDS: AMINO ACIDS/PROTEIN HYDROLYS 30 ML LIQUID.PKT PO SCH (09:22)
[2022-04-08] MEDS: D5-NS + 20 MEQ KCL - 20 MEQ/1,000 ML INFUS.BAG IV SCH (09:22)
[2022-04-08 14:05] VITALS: BP 126/75; PULSE 82; TEMP 98.3
== END 2022-04-08 14:13 | DRG 560 ==
LOC: FER 14:08 → FM/S 18:48
PROVIDERS: ADMIT Internal Medicine
DX: T84.53XA Infection and inflammatory reaction due to internal right knee prosthesis, initial encounter (principal); E46 Unspecified protein-calorie malnutrition; E87.1 Hypo-osmolality and hyponatremia; L03.115 Cellulitis of right lower limb; R64 Cachexia; F02.818 Dementia in other diseases classified elsewhere, unspecified severity, with other behavioral disturbance; F05 Delirium due to known physiological condition; G30.9 Alzheimer's disease, unspecified; Y83.8 Other surgical procedures as the cause of abnormal reaction of the patient, or of later complication, without mention of misadventure at the time of the procedure; E87.6 Hypokalemia; F32.A Depression, unspecified; F41.9 Anxiety disorder, unspecified; I12.9 Hypertensive chronic kidney disease with stage 1 through stage 4 chronic kidney disease, or unspecified chronic kidney disease; N18.9 Chronic kidney disease, unspecified; R62.7 Adult failure to thrive; Z68.20 Body mass index [BMI] 20.0-20.9, adult
CPT/HCPCS: 0241U-QW; 36415; 71045-TC-FY; 73560-TC-RT-FY; 80048; 80053; 83735; 85025; 85027; 85610; 85651; 85730; 86140; 87040; 87070; 87186; 87205; 93005; 99285-25; C9803-CS; G0480; J1644; U0003; U0005